=== PATIENT | male | born 1990 | race Caucasian/White ===

== ENCOUNTER 2021-04-26 17:04 | Emergency (ER) | payer MEDICAID, SELFPAY ==
--- NOTE | ~2021-04-26 | CT_ITS ---
EXAMINATION: CT ABDOMEN AND PELVIS WITH CONTRAST CLINICAL INFORMATION: Right lower quadrant tenderness. Pain. Nausea, vomiting, diarrhea. COMPARISON: None TECHNIQUE: Multidetector volumetric images were obtained from the superior aspect of the liver through the pubic symphysis following administration 85 mL of Omnipaque 350 intravenous contrast. Sagittal and coronal reformatted images were obtained on the technologist's workstation. Oral contrast: No This CT examination was performed using dose optimization techniques as appropriate, variously including the following: *Automated exposure control *Adjustment of mA and/or kV according to patient size (this includes techniques or standardized protocols for targeted exams where dose is matched to indication/reason for exam; i.e. extremities or head) *Use of iterative reconstruction technique DLP: 533 mGy-cm FINDINGS: LUNG BASES: The visualized lung bases are unremarkable. LIVER, GALLBLADDER, AND BILIARY TREE: The liver is normal in size, shape, and attenuation. No focal hepatic lesion or biliary ductal dilatation is present. The gallbladder is unremarkable with no evidence of radiopaque gallstones, gallbladder wall thickening, or obvious pericholecystic inflammatory changes. PANCREAS: Unremarkable. SPLEEN: Unremarkable. ADRENAL GLANDS: Unremarkable. KIDNEYS AND URETERS: The kidneys are normal in size, shape, and attenuation. No hydronephrosis, hydroureter, or calculi seen. No perinephric stranding. BLADDER: Unremarkable. GASTROINTESTINAL TRACT: The stomach is unremarkable. Normal caliber small bowel. There is no obstruction. No colonic wall thickening or inflammatory change. Normal appendix. No free air or free fluid. ABDOMINAL WALL: No significant hernia is appreciated. LYMPH NODES: There is no lymphadenopathy. In the left pelvis along the external iliac vasculature there is a 3.7 x 2.4 x 4 cm cystic structure. No soft tissue component. VASCULAR: Unremarkable. PELVIC VISCERA: The prostate and seminal vesicles are unremarkable. OSSEOUS STRUCTURES: No acute or suspicious osseous abnormality. CT/CT abdomen pelvis w con IMPRESSION: No acute findings of the abdomen or pelvis. Normal appendix. No inflammatory changes. Incidentally noted cystic structure along the left iliac vasculature. While nonspecific, this may represent a lymphocele.
[2021-04-26 17:32] VITALS: BP 114/72; PULSE 93; RESP 16; TEMP 37.5; O2SAT 98; BMI 27.2
[2021-04-26 19:54] LABS: MANUAL DIFF FLAG NO
[2021-04-26 19:55] LABS: Basophils Absolute Auto 0.1 X10*3/uL (0.0-0.2); Basophils Percent Auto 0.2 % (0-2); Hematocrit 49.2 % (42-52); Hemoglobin 17.1 g/dl (14.0-18.0); Imm Gran Abs Auto 0.11 X10*3/uL (0.00-0.03); Imm Gran Pct Auto 0.5 % (0.0-0.4); Lymphocytes Absolute Auto 2.8 X10*3/uL (1.2-4.9); Lymphocytes Percent Auto 13.7 % (20-40); Mean Corpuscular HGB Conc 34.8 g/dl (31.0-36.0); Mean Corpuscular Hemoglobin 30.2 pg (27.0-33.0); Mean Corpuscular Volume 86.9 fL (80-98); Mean Platelet Volume 11.8 fL (9.4-12.4); Monocytes Absolute Auto 1.4 X10*3/uL (0.1-1.2); Monocytes Percent Auto 6.7 % (2-11); Neutrophils Absolute Auto 16.1 X10*3/uL (2.0-8.3); Neutrophils Percent Auto 78.9 % (45-73); Platelet Count 297 X10*3/uL (160-400); Red Blood Count 5.66 X10*6/uL (4.60-5.80); Red Cell Distribution Width 12.4 % (11.0-16.0); White Blood Count 20.5 X10*3/uL (4.8-10.8)
[2021-04-26 20:13] LABS: Appearance Urine CLEAR; Color Urine DK YELLOW; Glucose Urine UA NEG (NEG); Leukocyte Esterase Urine NEG (NEG); Nitrite Urine NEG (NEG); Specific Gravity - Urine >= 1.030 (1.005-1.025); UACC Culture Trigger NO; Urine Blood 3+ (NEG); Urine Ketones 15 MG/DL (NEG); Urine Protein 2+ MG/DL (NEG-TRACE)
[2021-04-26 20:15] LABS: Alanine Aminotransferase 21 U/L (0-40); Albumin Level 5.7 g/dL (3.5-5.0); Alkaline Phosphatase 106 U/L (39-117); Anion Gap 16 (12-20); Aspartate Amino Transferase 19 U/L (5-37); Bilirubin Direct 0.7 mg/dL (0.0-0.5); Bilirubin Total 2.8 mg/dL (0.0-1.0); Blood Urea Nitrogen 16 mg/dL (9-16); Calcium 11.5 mg/dL (8.4-10.2); Carbon Dioxide 29 mmol/L (22-29); Chloride 105 mmol/L (96-108); Creatinine Clr Calc Pharmacy 105.1; Estimated Glomerular Filt Rate > 60; Glucose Random 105 mg/dL (60-115); Lipase 22 U/L (8-78); Potassium 4.4 mmol/L (3.3-5.1); Sodium 146 mmol/L (135-145); Total Protein 8.8 g/dL (6.5-8.0)
[2021-04-26 20:20] LABS: Amorphous Sediment Urine TRACE /LPF; Bacteria Urine TRACE /LPF; Mucus Urine 3+ /LPF; Squamous Epithelial Cell Urine TRACE /LPF
[2021-04-26 20:23] VITALS: BP 129/69; PULSE 77; RESP 16; TEMP 37.3; O2SAT 96
--- NOTE | 2021-04-26 21:27 | ED_ITS ---
HPI - General Adult General Chief complaint: Nausea/Vomiting/Diarrhea Stated complaint: dehydration Time Seen by Provider: 04/26/21 21:10 Source: patient Mode of arrival: ambulatory Limitations: no limitations History of Present Illness HPI narrative: 30-year-old male who presents emergency department for evaluation of nausea, vomiting, diarrhea and abdominal pain x3 days. The patient states that he has chronic nausea he wakes up every morning with nausea for the past 2- 3 years. He states that 3 days prior he woke up with nausea and vomited multiple times throughout the day. He states that he has been vomiting 2-3 times per day. He states that 3 days prior he had multiple episodes of loose diarrheal stool but this resolved. He is complaining of lower abdominal pain, right lower quadrant worse than left. The pain is a constant, burning sensation which is worse with movement. He states the pain is 8/10 at its worst. Patient states he has had several episodes in the past where he has had nausea vomiting diarrhea and abdominal pain but has never had any hospitalizations or abdominal surgeries The patient denied fever, chills, chest pain, shortness of breath, lightheadedness or dizziness. The patient does smoke marijuana 3 to 4 times a week. Related Data Previous Rx's Medication Instructions Recorded omeprazole 20 mg capsule,delayed 20 mg PO DAILY 30 Days #30 cap 04/26/21 release ondansetron HCl 4 mg tablet 4 mg PO Q8H PRN #14 tab 04/26/21 (Zofran) Allergies Allergy/AdvReac Type Severity Reaction Status Date / Time No Known Allergies Allergy Unverified 05/03/20 16:11 Review of Systems Review of Systems: Yes all other systems are reviewed and are negative [facility] Past Medical History [facility] Narrative: Past medical history: Asthma. Past surgical history: None. Social history: He denies tobacco use. He denies alcohol use. He states that he smokes marijuana 3 to 4 times a week, 1-2 joints. Denies other drug use. Social History Social History Advance Directives: No Advance Directives Information Provided: Yes Physical Exam Vital Signs: Vital Signs: Last Vital Signs Temp 99.1 F 04/26/21 20:23 Pulse 70 04/26/21 21:51 Resp 16 04/26/21 23:17 BP 130/64 04/26/21 21:51 Pulse Ox 98 04/26/21 21:51 Body Mass Index 27.2 Const: General: cooperative and no acute distress Orientation/consciousness: oriented to person and oriented to place Limitations: no limitations HENMT: Head: Yes normal to inspection, Yes normocephalic and Yes atraumatic Ears: external ears normal General nose exam: Normal external nose present Face and sinus: Yes normal facial exam Mouth: Normal oral and palatal mucosa present Throat: Yes posterior oropharynx normal Eyes: General: appearance normal, both eyes and all related structures Pupils: Equal, round and reactive pupils present Neck: Neck: Yes normal visual inspection, Yes no lymphadenopathy, Yes trachea midline and Yes supple Chest: Chest palpation & inspection: normal inspection of the chest and normal palpation of entire chest wall Resp: Effort & Inspection: normal respiratory effort and able to speak in complete sentences Auscultation: clear to auscultation bilaterally Cardio: Rate: regular rate Rhythm: regular rhythm Heart sounds: S1 normal heart sound present, S2 normal heart sound present and no murmurs GI: Inspection: Yes normal to inspection Palpation (GI): Soft to palpation, Tenderness to palpation present (GI) in the LUQ (Mild), in the RUQ (Moderate) and suprapubicly (Mild) and no guarding Auscultation: normal bowel sounds : General: Yes no CVA tenderness Back/Spine/Pelvis: Back: no CVA tenderness Skin: General skin exam: no rashes or lesions noted Neuro: General: oriented to person and oriented to place Cranial nerves: Yes CN's II-XII intact bilaterally and Yes Equal, round and reactive pupils present Cognition (Neuro): normal cognition Motor exam (neuro): 5/5 motor strength present throughout Extrem: General: Yes normal to inspection Psych: Appearance: grossly normal Speech and movement: Normal speech and movement present Affect: normal affect Attitude: cooperative Thought process: Normal thought process present Thought content: Normal thought content present Course Course Course Narrative: [age]old male who presents emergency department for evaluation of 3 days of nausea, vomiting and abdominal pain. He did have 1 day of diarrhea but this resolved. Vital signs revealed a slight elevation is temperature of 99.5? otherwise unremarkable. The patient's physical examination did reveal lower abdominal tenderness right greater than left. Laboratory evaluation [place] [address]. Patient has an elevated total bilirubin of 2.8 with a low direct bilirubin of 0.7. Urinalysis revealed 15-29 RBCs but no WBCs. Patient's urine is concentrated. Given the patient's right lower quadrant tenderness I did order a CT scan of the abdomen pelvis with IV contrast. Patient was ordered to get Zofran 4 mg IV for his nausea and vomiting. I also ordered to get Toradol 30 mg IV for his abdomi nal pain. Patient was ordered to get 2 L of normal saline IV. 2325: The patient's CT scan of the abdomen pelvis did not reveal any acute findings to explain patient's symptoms. The patient is feeling significantly better after the above treatment. I did discuss the differential with the patient this includes but is not limited to viral syndrome, gastritis and marijuana hyperemesis syndrome. The patient was started on omeprazole 20 mg once a day for 1 month, Zofran ODT 4 mg every 8 hours as needed for nausea and vomiting. The patient was discharged home . The patient was given verbal and printed instructions prior to discharge. The patient was advised to follow-up with his PCP in 2 days and to return to the emergency department if his symptoms get worse or if he develops any new symptoms that are concerning to him. Medical Decision Making Lab Data Result diagrams: 04/26/21 19:42 04/26/21 19:42 Labs: Lab Results 04/26/21 04/26/21 04/26/21 Range/Units 19:42 19:42 19:53 WBC 20.5 H (4.8-10.8) X10*3/uL RBC 5.66 (4.60-5.80) X10*6/uL Hgb 17.1 (14.0-18.0) g/dl Hct 49.2 (42-52) % MCV 86.9 (80-98) fL MCH 30.2 (27.0-33.0) pg MCHC 34.8 (31.0-36.0) g/dl RDW 12.4 (11.0-16.0) % Plt Count 297 (160-400) X10*3/uL MPV 11.8 (9.4-12.4) fL Immature Gran % (Auto) 0.5 H (0.0-0.4) % Neut % (Auto) 78.9 H (45-73) % Lymph % (Auto) 13.7 L (20-40) % [place] % (Auto) 6.7 (2-11) % Eos % (Auto) 0.0 (0-4) % Baso % (Auto) 0.2 (0-2) % Lymph # (Auto) 2.8 (1.2-4.9) X10*3/uL [place] # (Auto) 1.4 H (0.1-1.2) X10*3/uL Eos # (Auto) 0.0 (0.0-0.4) X10*3/uL Baso # (Auto) 0.1 (0.0-0.2) X10*3/uL Abs Immat Gran (auto) 0.11 H (0.00-0.03) X10*3/uL Absolute Neuts (auto) 16.1 H (2.0-8.3) X10*3/uL Absolute Nucleated RBC 0.000 (0.0-0.012) X10*3/uL Nucleated RBC % (auto) 0.0 (0.0-0.2) /100WBC Sodium 146 H (135-145) mmol/L Potassium 4.4 (3.3-5.1) mmol/L Chloride 105 (96-108) mmol/L Carbon Dioxide 29 (22-29) mmol/L Anion Gap 16 (12-20) BUN 16 (9-16) mg/dL Creatinine 1.08 (0.5-1.4) mg/dL Estim Creat Clear Calc 105.1 Estimated GFR > 60 Random Glucose 105 (60-115) mg/dL Calcium 11.5 H (8.4-10.2) mg/dL Total Bilirubin 2.8 H (0.0-1.0) mg/dL Direct Bilirubin 0.7 H (0.0-0.5) mg/dL AST 19 (5-37) U/L ALT 21 (0-40) U/L Alkaline Phosphatase 106 (39-117) U/L Total Protein 8.8 H (6.5-8.0) g/dL Albumin 5.7 H (3.5-5.0) g/dL Lipase 22 (8-78) U/L Urine Color DK YELLOW Urine Appearance CLEAR Urine pH 6.0 (5.0-8.0) Ur Specific [place] >= 1.030 H (1.005-1.025) Urine Protein 2+ H (NEG-TRACE) MG/DL Urine Glucose (UA) NEG (NEG) MG/DL Urine Ketones 15 (NEG) MG/DL Urine Blood 3+ H (NEG) Urine Nitrite NEG (NEG) Ur Leukocyte Esterase NEG (NEG) Urine RBC 15-29 H (0) /HPF Urine WBC 1-4 (0-4) /HPF Ur Squamous Epith Cells TRACE /LPF Amorphous Sediment TRACE /LPF Urine Bacteria TRACE /LPF Urine Mucus 3+ /LPF Discharge Plan Discharge Clinical Impression: Vomiting, Cyclic vomiting syndrome Gastritis Qualifiers: Gastritis type: unspecified gastritis Chronicity: acute Patient Disposition: Home, Self-Care Instructions: Gastritis (ED) Additional Instructions: Your blood work revealed an elevated white blood cell count. The CT scan of your abdomen pelvis was normal with no evidence of appendicitis or other finding to explain your symptoms. At this time I am concerned that you might have inflammation of your stomach (gastritis). I am also concerned that your persistent nausea may be related to marijuana/cannabis hyperemesis syndrome which is chronic nausea and vomiting caused by smoking marijuana on a regular basis. Take Prilosec (omeprazole) 20 mg pills, 1 pill once a day for 1 month, this will shut off the acid production your stomach and mature stomach heal. Take Zofran ODT 4 mg pills, 1 pill dissolved in your mouth every 8 hours as needed for nausea and vomiting. You need to stop smoking marijuana since this may be causing her symptoms. Follow-up with your doctor in 2 days. Please return to the emergency department if your symptoms get worse or if you develop any symptoms that are concerning to you. Prescriptions: New omeprazole 20 mg capsule,delayed release(DR/EC) 20 mg PO DAILY 30 Days Qty: 30 RF: 0 ondansetron HCl [Zofran] 4 mg tablet 4 mg PO Q8H PRN (Reason: nausea and vomiting) Qty: 14 RF: 0
[2021-04-26 21:51] VITALS: BP 130/64; PULSE 70; RESP 16; O2SAT 98
[2021-04-26] MEDS: 0.9 % Sodium Chloride 1,000 ML 999 ML IV ×2 (21:52→22:28)
[2021-04-26] MEDS: ondansetron HCL 4 MG/2 ML VIAL IVPUSH (21:53)
[2021-04-26] MEDS: Ketorolac Tromethamine 15 MG/ML VIAL 30 MG IVPUSH (21:53)
[2021-04-26] MEDS: iohexoL 350 MG/ML 100 ML INFUS..BTL IV (22:27)
[2021-04-26 23:17] VITALS: RESP 16
[2021-04-27 00:02] VITALS: RESP 16
== END 2021-04-27 00:03 | disposition home or self-care (01) ==
PROVIDERS: Emergency Provider Emergency Medicine Emergency Medical Services
DX: R11.15 Cyclical vomiting syndrome unrelated to migraine (principal); K29.00 Acute gastritis without bleeding; R11.2 Nausea with vomiting, unspecified; E86.0 Dehydration; Z79.899 Other long term (current) drug therapy
CPT/HCPCS: 36415; 74177; 80048; 80076; 81001; 83690; 85025; 96361; 96374; 96375; 99284; J1885; J2405; Q9967

== ENCOUNTER 2021-10-19 20:10 | Emergency (ER) | payer MEDICAID, SELFPAY ==
[2021-10-19 20:14] VITALS: BP 129/59; PULSE 81; RESP 16; TEMP 37.1; O2SAT 95; BMI 24.3
[2021-10-19 20:36] LABS: Appearance Urine HAZY; Color Urine YELLOW; Glucose Urine UA NEG (NEG); Leukocyte Esterase Urine NEG (NEG); Nitrite Urine NEG (NEG); UACC Culture Trigger NO; Urine Blood 3+ (NEG); Urine Ketones 40 MG/DL (NEG); Urine Protein 3+ MG/DL (NEG-TRACE)
[2021-10-19 20:36] LABS: Basophils Percent Auto 0.2 % (0-2); Hematocrit 47.9 % (42.0-52.0); Hemoglobin 16.5 g/dl (14.0-18.0); Imm Gran Abs Auto 0.08 X10*3/uL (0.00-0.03); Imm Gran Pct Auto 0.4 % (0.0-0.4); Lymphocytes Absolute Auto 1.1 X10*3/uL (1.2-4.9); Lymphocytes Percent Auto 5.6 % (20-40); MANUAL DIFF FLAG SCAN; Mean Corpuscular HGB Conc 34.4 g/dl (31.0-36.0); Mean Corpuscular Hemoglobin 29.5 pg (27.0-33.0); Mean Corpuscular Volume 85.7 fL (80.0-98.0); Mean Platelet Volume 11.7 fL (9.4-12.4); Monocytes Absolute Auto 0.6 X10*3/uL (0.1-1.2); Monocytes Percent Auto 3.2 % (2-11); Neutrophils Absolute Auto 17.8 x10*3/uL (2.0-8.3); Neutrophils Percent Auto 90.6 % (45-73); Platelet Count 345 X10*3/uL (160-400); Red Blood Count 5.59 X10*6/uL (4.60-5.80); Red Cell Distribution Width 12.7 % (11.0-16.0); SCAN SMEAR FLAG 1; White Blood Count 19.6 X10*3/uL (4.8-10.8)
[2021-10-19 20:51] LABS: IDNOW Serial# 55D5AD1C
[2021-10-19 20:52] LABS: COVID-19 Test Negative (Negative)
[2021-10-19 20:53] LABS: Anion Gap 17 (12-20); Blood Urea Nitrogen 18 mg/dL (9-16); Calcium 11.4 mg/dL (8.4-10.2); Carbon Dioxide 24 mmol/L (22-29); Chloride 106 mmol/L (96-108); Creatinine Clr Calc Pharmacy 108.2; Estimated Glomerular Filt Rate > 60; Glucose Random 145 mg/dL (60-115); Potassium 4.2 mmol/L (3.3-5.1); Sodium 143 mmol/L (135-145)
[2021-10-19 21:08] LABS: Bacteria Urine 1+ /LPF; Mucus Urine 1+ /LPF; WBC Urine 0 /HPF (0-4)
[2021-10-19 21:09] LABS: SLIDE REVIEW VERIFIED
--- NOTE | 2021-10-19 21:47 | ED.NAVMDI ---
HPI - Nausea/Vomiting/Diarrhea General Chief complaint: Abdominal Pain Stated complaint: vomitting, dehydrated, nausea Time Seen by Provider: 10/19/21 21:22 Source: patient, family and [employer] Mode of arrival: ambulatory History of Present Illness HPI Narrative: 31-year-old male with persistent use of marijuana comes in with 24 hours of nausea and vomiting without diarrhea or urinary symptoms. Related Data Previous Rx's Medication Instructions Recorded omeprazole 20 mg capsule,delayed 20 mg PO DAILY 30 Days #30 cap 04/26/21 release ondansetron HCl 4 mg tablet 4 mg PO Q8H PRN #14 tab 04/26/21 (Zofran) Allergies Allergy/AdvReac Type Severity Reaction Status Date / Time No Known Allergies Allergy Unverified 05/03/20 16:11 Review of Systems Review of Systems: Pertinent positives and negatives as stated in HPI 10 point review of systems is otherwise negative. PMFSH Past Medical History Source: nursing notes reviewed Medical History No known health problems Social History Social History Advance Directives: No Physical Exam Vital Signs: Vital Signs: Last Vital Signs Temp 98.8 F 10/19/21 20:14 Pulse 81 10/19/21 20:14 Resp 16 10/19/21 20:14 BP 129/59 L 10/19/21 20:14 Pulse Ox 95 10/19/21 20:14 BMI result Body Mass Index 24.3 VITAL SIGNS: Reviewed. GENERAL: Well developed, well nourished, in no acute distress. HEAD: Normocephalic/atraumatic EYES: PERRLA, EOMI EARS: Ext canals without abnormality OROPHARYNX: no oral lesions noted, posterior pharynx clear LUNGS: Normal breath sounds. No adventitious sounds or accessory muscle use. SpO2<95> CARDIOVASCULAR: Regular rate and rhythm without noted murmurs ABDOMEN: Soft, non-tender, non-distended with bowel sounds. MUSCULOSKELETAL: No tenderness, deformities, or effusions noted on gross inspection. EXTREMITIES: No cyanosis, clubbing or edema. SKIN: Inspection of the skin reveals no rashes NEUROLOGIC: Alert and oriented x 4. Strength and sensation to light touch were grossly intact x 4. Course Course Course Narrative: 31-year-old male with history of cyclical vomiting as well as marijuana use. Review of all investigations although a noted leukocytosis is present this is felt to be consistent with patient's multiple episodes of nausea and vomiting as he has no other acute complaints. He is afebrile, not tachycardic and will treat with antiemetics and IV fluid resuscitation. On re-evaluation patient is feeling much better and is otherwise stable for discharge to home. Patient is tolerating oral intake. MDM - Nausea/Vomiting/Diarrhea Lab Data Result diagrams: 10/19/21 20:21 10/19/21 20:21 Labs: Lab Results 10/19/21 10/19/21 10/19/21 Range/Units 20:21 20:21 20:21 WBC 19.6 H (4.8-10.8) X10*3/uL RBC 5.59 (4.60-5.80) X10*6/uL Hgb 16.5 (14.0-18.0) g/dl Hct 47.9 (42.0-52.0) % MCV 85.7 (80.0-98.0) fL MCH 29.5 (27.0-33.0) pg MCHC 34.4 (31.0-36.0) g/dl RDW 12.7 (11.0-16.0) % Plt Count 345 (160-400) X10*3/uL MPV 11.7 (9.4-12.4) fL Immature Gran % (Auto) 0.4 (0.0-0.4) % Neut % (Auto) 90.6 H (45-73) % Lymph % (Auto) 5.6 L (20-40) % [place] % (Auto) 3.2 (2-11) % Eos % (Auto) 0.0 (0-4) % Baso % (Auto) 0.2 (0-2) % Lymph # (Auto) 1.1 L (1.2-4.9) X10*3/uL [place] # (Auto) 0.6 (0.1-1.2) X10*3/uL Eos # (Auto) 0.0 (0.0-0.4) X10*3/uL Baso # (Auto) 0.0 (0.0-0.2) X10*3/uL Abs Immat Gran (auto) 0.08 H (0.00-0.03) X10*3/uL Absolute Neuts (auto) 17.8 H (2.0-8.3) x10*3/uL Absolute Nucleated RBC 0.000 (0.0-0.012) X10*3/uL Nucleated RBC % (auto) 0.0 (0.0-0.2) /100WBC Smear Tech's Comments VERIFIED Sodium 143 (135-145) mmol/L Potassium 4.2 (3.3-5.1) mmol/L Chloride 106 (96-108) mmol/L Carbon Dioxide 24 (22-29) mmol/L Anion Gap 17 (12-20) BUN 18 H (9-16) mg/dL Creatinine 1.04 (0.5-1.4) mg/dL Estim Creat Clear Calc 108.2 Estimated GFR > 60 Random Glucose 145 H D (60-115) mg/dL Calcium 11.4 H (8.4-10.2) mg/dL Urine Color Urine Appearance Urine pH (5.0-8.0) Ur Specific [place] (1.005-1.025) Urine Protein (NEG-TRACE) MG/DL Urine Glucose (UA) (NEG) MG/DL Urine Ketones (NEG) MG/DL Urine Blood (NEG) Urine Nitrite (NEG) Ur Leukocyte Esterase (NEG) Urine RBC (0) /HPF Urine WBC (0-4) /HPF Ur Squamous Epith Cells /LPF Urine Bacteria /LPF Urine Mucus /LPF COVID-19 ([facility]) Negative (Negative) COVID-19 Clin Com See Note 10/19/21 Range/Units 20:26 WBC (4.8-10.8) X10*3/uL RBC (4.60-5.80) X10*6/uL Hgb (14.0-18.0) g/dl Hct (42.0-52.0) % MCV (80.0-98.0) fL MCH (27.0-33.0) pg MCHC (31.0-36.0) g/dl RDW (11.0-16.0) % Plt Count (160-400) X10*3/uL MPV (9.4-12.4) fL Immature Gran % (Auto) (0.0-0.4) % Neut % (Auto) (45-73) % Lymph % (Auto) (20-40) % [place] % (Auto) (2-11) % Eos % (Auto) (0-4) % Baso % (Auto) (0-2) % Lymph # (Auto) (1.2-4.9) X10*3/uL [place] # (Auto) (0.1-1.2) X10*3/uL Eos # (Auto) (0.0-0.4) X10*3/uL Baso # (Auto) (0.0-0.2) X10*3/uL Abs Immat Gran (auto) (0.00-0.03) X10*3/uL Absolute Neuts (auto) (2.0-8.3) x10*3/uL Absolute Nucleated RBC (0.0-0.012) X10*3/uL Nucleated RBC % (auto) (0.0-0.2) /100WBC Smear Tech's Comments Sodium (135-145) mmol/L Potassium (3.3-5.1) mmol/L Chloride (96-108) mmol/L Carbon Dioxide (22-29) mmol/L Anion Gap (12-20) BUN (9-16) mg/dL Creatinine (0.5-1.4) mg/dL Estim Creat Clear Calc Estimated GFR Random Glucose (60-115) mg/dL Calcium (8.4-10.2) mg/dL Urine Color YELLOW Urine Appearance HAZY Urine pH 7.0 (5.0-8.0) Ur Specific [place] 1.020 (1.005-1.025) Urine Protein 3+ H (NEG-TRACE) MG/DL Urine Glucose (UA) NEG (NEG) MG/DL Urine Ketones 40 (NEG) MG/DL Urine Blood 3+ H (NEG) Urine Nitrite NEG (NEG) Ur Leukocyte Esterase NEG (NEG) Urine RBC 15-29 H (0) /HPF Urine WBC 0 (0-4) /HPF Ur Squamous Epith Cells NONE /LPF Urine Bacteria 1+ /LPF Urine Mucus 1+ /LPF COVID-19 ([facility]) (Negative) COVID-19 Clin Com Discharge Plan Discharge Clinical Impression: Cyclical vomiting Patient Disposition: Home, Self-Care Instructions: Cyclic Vomiting Syndrome (ED) Additional Instructions: 1. Recommend that you either decrease the amount marijuana that is smoked or fall possible stop smoking. 2. Recommend that you follow-up with your primary care provider. Return to the ER for worsening symptoms. Prescriptions: No Action omeprazole 20 mg capsule,delayed release(DR/EC) 20 mg PO DAILY 30 Days Qty: 30 0RF ondansetron HCl [Zofran] 4 mg tablet 4 mg PO Q8H PRN (Reason: nausea and vomiting) Qty: 14 0RF
[2021-10-19] MEDS: diphenhydrAMINE HCL 50 MG/ML VIAL 25 MG IVPUSH (22:12)
[2021-10-19] MEDS: 0.9 % Sodium Chloride 1,000 ML 999 ML IV (22:12)
[2021-10-19] MEDS: Metoclopramide HCl 10 MG/2 ML VIAL IVPUSH (22:12)
--- NOTE | 2021-10-20 00:25 | PC.NURSE ---
I assumed care of this pt upon his arrival to bed 17. he presented to the ED for evaluation of nausea and vomiting. He was given IVF's and anti-emetics and was able to take PO food and fluids following. He has been discharged and verbalized an understanding of all DC orders. He ambulated out of the ED independently and with steady gait.
== END 2021-10-20 00:28 | disposition home or self-care (01) ==
PROVIDERS: Emergency Provider Student in an Organized Health Care Education/Training Program
DX: R11.15 Cyclical vomiting syndrome unrelated to migraine (principal); R11.2 Nausea with vomiting, unspecified; F12.90 Cannabis use, unspecified, uncomplicated; Z20.822 Contact with and (suspected) exposure to COVID-19
CPT/HCPCS: 80048; 81001; 85025; 87635; 96361; 96374; 96375; 99283; 99284; J1200; J2765

== ENCOUNTER 2021-11-01 09:20 | Emergency (ER) | payer MEDICAID, SELFPAY ==
[2021-11-01 09:51] VITALS: BP 124/70; PULSE 74; RESP 18; TEMP 36.9; O2SAT 100; BMI 23.6
[2021-11-01] MEDS: Ondansetron ODT 4 MG TAB.RAPDIS TRANSLINGU (09:54)
--- NOTE | 2021-11-01 12:04 | ED.NAVMDI ---
HPI - Nausea/Vomiting/Diarrhea General Chief complaint: Nausea/Vomiting/Diarrhea Stated complaint: Dehydrated/nauseous Time Seen by Provider: 11/01/21 11:58 Source: patient Mode of arrival: ambulatory Limitations: no limitations History of Present Illness HPI Narrative: Patient comes to the emergency room complaining of nausea vomiting, no diarrhea, no significant abdominal pain. Patient states that yesterday he ate something around 19:00 that might have upset his stomach. This morning, around 04:00 he woke up complaining of nausea and vomiting. Patient denies fever chills, no URI or UTI symptoms Related Data Previous Rx's Medication Instructions Recorded omeprazole 20 mg capsule,delayed 20 mg PO DAILY 30 Days #30 cap 04/26/21 release ondansetron HCl 4 mg tablet 4 mg PO Q8H PRN #14 tab 04/26/21 (Zofran) ondansetron HCl 4 mg tablet 4 mg PO Q6H PRN #7 tab 11/01/21 Allergies Allergy/AdvReac Type Severity Reaction Status Date / Time No Known Allergies Allergy Unverified 05/03/20 16:11 Review of Systems Review of Systems: Constitutional : No Weight loss, No Fever, No Chills, No Night Sweats, No Fatigue, No Malaise ENT/Mouth : No Hearing loss, No Ear Pain, No Nasal Congestion, No Sinus Pain, No Hoarseness, No sore throat, No Rhinorrhea, No Swallowing Difficulty Eyes: No Eye Pain, No Swelling, No Redness, No Foreign Body, No Discharge, No Vision Changes Cardiovascular : No Chest Pain, No SOB, No Dyspnea on Exertion, No Orthopnea, No Edema, No Palpitations Respiratory : No Cough, No Sputum, No Wheezing, No Smoke Exposure, No Dyspnea Gastrointestinal : Complaining of nausea vomiting, No Diarrhea, No Constipation, No abdominal Pain, No Hematochezia, No Melena Genitourinary :No Dysuria, No Urinary Frequency, No Hematuria, No Urinary Incontinence, No Urgency, No Flank Pain, No Urinary Flow Changes, No Hesitancy Musculoskeletal : No joint pain, No Myalgias, No Joint Swelling Skin : No Skin Lesions, No rash Neuro : No Weakness, No Numbness, No Paresthesias, No Loss of Consciousness, No Dizziness, No Headache Psych : No Anxiety/Panic, No Depression, No SI/HI/AH/VH, No Social Issues, Heme/Lymph: No Bruising, No Bleeding,No Lymphadenopathy Endocrine : No Polyuria, No Polydipsia, No Temperature Intolerance [facility] Past Medical History Medical History No known health problems Social History Social History Smoked in Last 30 Days: No Use of substances other than those prescribed or required for medical reasons: Yes Substance Use Type: Marijuana Advance Directives: No Advance Directives Information Provided: No Physical Exam Vital Signs: Vital Signs: Last Vital Signs Temp 98.7 F 11/01/21 12:13 Pulse 74 11/01/21 12:13 Resp 16 11/01/21 12:13 BP 118/73 11/01/21 12:13 Pulse Ox 98 11/01/21 12:13 BMI result Body Mass Index 23.6 Const: Other: Appearance: Alert. Oriented X3. No acute distress. Eyes: Pupils equal, round and reactive to light. ENT: Pharynx normal. Neck: Normal inspection. Neck supple. No lymph nodes noted. No crepitus CVS: Normal heart rate and rhythm. Pulses normal. Normal S1 and S2 Respiratory: No respiratory distress. Breath sounds normal. No Wheezing. No rales Abdomen: Soft and nontender. No rigidity. No distention. Skin: Skin warm and dry. Normal skin color. Normal skin turgor. Extremities: No lower extremity edema. No Lacerations. No Rash Neuro: Oriented X 3. No motor deficit. No sensory deficit. Moving all extremities. No slurred speech. CN 2 through 12 grossly intact Psych: calm, cooperative, normal affect Course Course Course Narrative: Patient was given p.o. Zofran on arrival. Patient will be given fluids in Compazine. Labs pending including COVID and influenza. Patient tested negative for COVID influenza, patient likely having numbness. Overall patient feeling better, no longer having nausea vomiting or diarrhea. Patient states that he feels much better MDM - Nausea/Vomiting/Diarrhea Lab Data Result diagrams: 11/01/21 12:23 11/01/21 15:13 Labs: Lab Results 11/01/21 11/01/21 11/01/21 Range/Units 12:19 12:20 12:23 WBC 16.8 H (4.8-10.8) X10*3/uL RBC 5.33 (4.60-5.80) X10*6/uL Hgb 16.0 (14.0-18.0) g/dl Hct 46.7 (42.0-52.0) % MCV 87.6 (80.0-98.0) fL MCH 30.0 (27.0-33.0) pg MCHC 34.3 (31.0-36.0) g/dl RDW 12.8 (11.0-16.0) % Plt Count 302 (160-400) X10*3/uL MPV 11.5 (9.4-12.4) fL Immature Gran % (Auto) 0.4 (0.0-0.4) % Neut % (Auto) 89.8 H (45-73) % Lymph % (Auto) 6.3 L (20-40) % [place] % (Auto) 3.2 (2-11) % Eos % (Auto) 0.0 (0-4) % Baso % (Auto) 0.3 (0-2) % Lymph # (Auto) 1.1 L (1.2-4.9) X10*3/uL [place] # (Auto) 0.5 (0.1-1.2) X10*3/uL Eos # (Auto) 0.0 (0.0-0.4) X10*3/uL Baso # (Auto) 0.1 (0.0-0.2) X10*3/uL Abs Immat Gran (auto) 0.07 H (0.00-0.03) X10*3/uL Absolute Neuts (auto) 15.1 H (2.0-8.3) x10*3/uL Absolute Nucleated RBC 0.000 (0.0-0.012) X10*3/uL Nucleated RBC % (auto) 0.0 (0.0-0.2) /100WBC Sodium (135-145) mmol/L Potassium (3.3-5.1) mmol/L Chloride (96-108) mmol/L Carbon Dioxide (22-29) mmol/L Anion Gap (12-20) BUN (9-16) mg/dL Creatinine (0.5-1.4) mg/dL Estim Creat Clear Calc Estimated GFR Random Glucose (60-115) mg/dL Calcium (8.4-10.2) mg/dL Total Bilirubin (0.0-1.0) mg/dL Direct Bilirubin (0.0-0.5) mg/dL AST (5-37) U/L ALT (0-40) U/L Alkaline Phosphatase (39-117) U/L Total Protein (6.5-8.0) g/dL Albumin (3.5-5.0) g/dL Lipase (8-78) U/L COVID-19 ([facility]) Negative (Negative) COVID-19 Clin Com See Note Influenza Type A (MARIO) Negative (Negative) Influenza Type B (MARIO) Negative (Negative) Influenza A & B Note See Note 11/01/21 Range/Units 15:13 WBC (4.8-10.8) X10*3/uL RBC (4.60-5.80) X10*6/uL Hgb (14.0-18.0) g/dl Hct (42.0-52.0) % MCV (80.0-98.0) fL MCH (27.0-33.0) pg MCHC (31.0-36.0) g/dl RDW (11.0-16.0) % Plt Count (160-400) X10*3/uL MPV (9.4-12.4) fL Immature Gran % (Auto) (0.0-0.4) % Neut % (Auto) (45-73) % Lymph % (Auto) (20-40) % [place] % (Auto) (2-11) % Eos % (Auto) (0-4) % Baso % (Auto) (0-2) % Lymph # (Auto) (1.2-4.9) X10*3/uL [place] # (Auto) (0.1-1.2) X10*3/uL Eos # (Auto) (0.0-0.4) X10*3/uL Baso # (Auto) (0.0-0.2) X10*3/uL Abs Immat Gran (auto) (0.00-0.03) X10*3/uL Absolute Neuts (auto) (2.0-8.3) x10*3/uL Absolute Nucleated RBC (0.0-0.012) X10*3/uL Nucleated RBC % (auto) (0.0-0.2) /100WBC Sodium 142 (135-145) mmol/L Potassium 4.3 (3.3-5.1) mmol/L Chloride 106 (96-108) mmol/L Carbon Dioxide 27 (22-29) mmol/L Anion Gap 13 (12-20) BUN 13 (9-16) mg/dL Creatinine 0.81 (0.5-1.4) mg/dL Estim Creat Clear Calc 138.9 Estimated GFR > 60 Random Glucose 101 (60-115) mg/dL Calcium 10.0 D (8.4-10.2) mg/dL Total Bilirubin 1.3 H (0.0-1.0) mg/dL Direct Bilirubin 0.4 (0.0-0.5) mg/dL AST 19 (5-37) U/L ALT 28 (0-40) U/L Alkaline Phosphatase 83 D (39-117) U/L Total Protein 7.1 (6.5-8.0) g/dL Albumin 4.7 (3.5-5.0) g/dL Lipase 10 (8-78) U/L COVID-19 ([facility]) (Negative) COVID-19 Clin Com Influenza Type A (MARIO) (Negative) Influenza Type B (MARIO) (Negative) Influenza A & B Note Discharge Plan Discharge Clinical Impression: Vomiting Patient Disposition: Home, Self-Care Instructions: Acute Nausea and Vomiting (ED) Additional Instructions: Please follow-up with your primary care physician tomorrow. If you have any worsening or new symptoms, please return to the emergency room or call 911 Prescriptions: New ondansetron HCl 4 mg tablet 4 mg PO Q6H PRN (Reason: nausea and vomiting) Qty: 7 0RF No Action omeprazole 20 mg capsule,delayed release(DR/EC) 20 mg PO DAILY 30 Days Qty: 30 0RF ondansetron HCl [Zofran] 4 mg tablet 4 mg PO Q8H PRN (Reason: nausea and vomiting) Qty: 14 0RF
[2021-11-01 12:13] VITALS: BP 118/73; PULSE 74; RESP 16; TEMP 37.1; O2SAT 98
[2021-11-01 12:27] LABS: MANUAL DIFF FLAG NO
[2021-11-01] MEDS: 0.9 % Sodium Chloride 1,000 ML 999 ML IVCONT (12:27)
[2021-11-01] MEDS: Prochlorperazine Edisylate 10 MG/2 ML VIAL 5 MG IVPUSH (12:27)
[2021-11-01 12:32] LABS: Basophils Absolute Auto 0.1 X10*3/uL (0.0-0.2); Basophils Percent Auto 0.3 % (0-2); Hematocrit 46.7 % (42.0-52.0); Imm Gran Abs Auto 0.07 X10*3/uL (0.00-0.03); Imm Gran Pct Auto 0.4 % (0.0-0.4); Lymphocytes Absolute Auto 1.1 X10*3/uL (1.2-4.9); Lymphocytes Percent Auto 6.3 % (20-40); Mean Corpuscular HGB Conc 34.3 g/dl (31.0-36.0); Mean Corpuscular Volume 87.6 fL (80.0-98.0); Mean Platelet Volume 11.5 fL (9.4-12.4); Monocytes Absolute Auto 0.5 X10*3/uL (0.1-1.2); Monocytes Percent Auto 3.2 % (2-11); Neutrophils Absolute Auto 15.1 x10*3/uL (2.0-8.3); Neutrophils Percent Auto 89.8 % (45-73); Platelet Count 302 X10*3/uL (160-400); Red Blood Count 5.33 X10*6/uL (4.60-5.80); Red Cell Distribution Width 12.8 % (11.0-16.0); White Blood Count 16.8 X10*3/uL (4.8-10.8)
[2021-11-01 12:46] LABS: COVID-19 Test Negative (Negative)
[2021-11-01 13:08] LABS: Influenza A Negative (Negative); Influenza B2 Negative (Negative)
[2021-11-01 15:35] LABS: Alanine Aminotransferase 28 U/L (0-40); Albumin Level 4.7 g/dL (3.5-5.0); Alkaline Phosphatase 83 U/L (39-117); Anion Gap 13 (12-20); Aspartate Amino Transferase 19 U/L (5-37); Bilirubin Direct 0.4 mg/dL (0.0-0.5); Bilirubin Total 1.3 mg/dL (0.0-1.0); Blood Urea Nitrogen 13 mg/dL (9-16); Carbon Dioxide 27 mmol/L (22-29); Chloride 106 mmol/L (96-108); Creatinine Clr Calc Pharmacy 138.9; Estimated Glomerular Filt Rate > 60; Glucose Random 101 mg/dL (60-115); Lipase 10 U/L (8-78); Potassium 4.3 mmol/L (3.3-5.1); Sodium 142 mmol/L (135-145); Total Protein 7.1 g/dL (6.5-8.0)
== END 2021-11-01 15:49 | disposition home or self-care (01) ==
PROVIDERS: Emergency Provider Emergency Medicine
DX: R11.2 Nausea with vomiting, unspecified (principal); Z20.822 Contact with and (suspected) exposure to COVID-19; F12.90 Cannabis use, unspecified, uncomplicated
CPT/HCPCS: 80048; 80076; 83690; 85025; 87502; 87635; 96361; 96374; 99284

== ENCOUNTER 2022-10-25 11:42 | Emergency (ER) | payer MEDICAID, SELFPAY ==
[2022-10-25 11:56] VITALS: BP 129/82; PULSE 78; RESP 16; TEMP 36.6; O2SAT 100; BMI 24.3
--- NOTE | 2022-10-25 11:56 | ED_ITS ---
HPI - General Adult General Chief complaint: Nausea/Vomiting/Diarrhea <ANTHONY Dasilva - Last Filed: 10/25/22 11:57> Stated complaint: Nauseas/Dizziness <ANTHONY Dasilva - Last Filed: 10/25/22 11:57> Time Seen by Provider: 10/25/22 12:50 <ANTHONY Dasilva - Last Filed: 10/25/22 11:57> Source: patient <ANTHONY Ojeda Last Filed: 10/25/22 18:54> Mode of arrival: ambulatory <ANTHONY Ojeda - Last Filed: 10/25/22 18:54> History of Present Illness HPI narrative: 32-year-old male with no significant past medical history presenting to the ED complaining of epigastric abdominal pain, nausea, vomiting, nonbloody diarrhea since 03:00AM. Reports about 20 episodes of emesis. Denies fever, chills, suspicious food intake, recent travel, dysuria/hematuria, EtOH or drug use <ANTHONY Ojeda Last Filed: 10/25/22 18:54> Onset (ago): hour(s) <ANTHONY Ojeda - Last Filed: 10/25/22 18:54> Related Data Home medications: Previous Rx's Medication Instructions Recorded omeprazole 20 mg capsule,delayed 20 mg PO DAILY 30 days #30 caps 04/26/21 release ondansetron HCl 4 mg tablet 4 mg PO Q8H PRN nausea and 04/26/21 (Zofran) vomiting #14 tabs ondansetron HCl 4 mg tablet 4 mg PO Q6H PRN nausea and 11/01/21 vomiting #7 tabs aluminum-mag hydroxide-simethicone 5 ml PO 5XD PRN dyspepsia #30 mL 10/25/22 200 mg-200 mg-20 mg/5 mL oral susp (Maalox Advanced) famotidine 20 mg tablet (Pepcid) 20 mg PO DAILY #14 tabs 10/25/22 ondansetron 4 mg disintegrating 4 mg PO Q8H PRN nausea and 10/25/22 tablet vomiting #10 tabs <ANTHONY Dasilva Last Filed: 10/25/22 11:57> Allergies/adverse reactions: Allergies Allergy/AdvReac Type Severity Reaction Status Date / Time No Known Allergies Allergy Unverified 05/03/20 16:11 <ANTHONY Dasilva - Last Filed: 10/25/22 11:57> Review of Systems Review of Systems: Constitutional: No Fever, No Chills, No Fatigue, No Malaise ENT/Mouth: No Ear Pain, No Nasal Congestion, No sore throat, No Rhinorrhea, No Swallowing Difficulty Eyes: No Eye Pain, No Swelling, No Redness Cardiovascular: No Chest Pain, No SOB, No Palpitations Respiratory: No Cough, No Sputum, No Dyspnea Gastrointestinal: + Nausea, + Vomiting, No Diarrhea, No Constipation, + Abdominal pain, No Hematochezia, No Melena Genitourinary: No Dysuria, No Urinary Frequency, No Hematuria, No Urinary Incontinence/retention, No Flank Pain Musculoskeletal: No joint pain, No Myalgias, No Joint Swelling Skin: No Skin Lesions, No rash Neuro: No Weakness, No Dizziness, No Headache <ANTHONY Ojeda - Last Filed: 10/25/22 18:54> Yes all other systems are reviewed and are negative <ANTHONY Ojeda - Last Filed: 10/25/22 18:54> Constitutional: Constitutional: Reports as per HPI <ANTHONY Ojeda - Last Filed: 10/25/22 18:54> [facility] Past Medical History Attestation statement: The following information was validated with the patient. <ANTHONY Ojeda - Last Filed: 10/25/22 18:54> Medical History: Medical History No known health problems <ANTHONY Dasilva - Last Filed: 10/25/22 11:57> Social History Social History: Social History Substance Use Type: Marijuana Advance Directives: No Advance Directives Information Provided: No <ANTHONY Dasilva - Last Filed: 10/25/22 11:57> Physical Exam ED Vital Signs: Vital Signs - 24 hr 10/25/22 11:56 10/25/22 15:57 Temperature 97.9 F 100.9 F H Pulse Rate 78 79 Respiratory Rate 16 16 Blood Pressure 129/82 134/66 Pulse Oximetry 100 100 Oxygen Delivery Method Room Air Room Air BMI result Body Mass Index 24.3 <ANTHONY Dasilva - Last Filed: 10/25/22 11:57> Vital Signs - 24 hr 10/25/22 11:56 10/25/22 15:57 Temperature 97.9 F 100.9 F H Pulse Rate 78 79 Respiratory Rate 16 16 Blood Pressure 129/82 134/66 Pulse Oximetry 100 100 Oxygen Delivery Method Room Air Room Air BMI result Body Mass Index 24.3 <ANTHONY Ojeda - Last Filed: 10/25/22 18:54> Const Other: Pale, diaphoretic <ANTHONY Ojeda - Last Filed: 10/25/22 18:54> General: cooperative, no acute distress, alert and awake <ANTHONY Ojeda - Last Filed: 10/25/22 18:54> Orientation/consciousness: patient oriented x3 <ANTHONY Ojeda - Last Filed: 10/25/22 18:54> Limitations: no limitations <ANTHONY Ojeda - Last Filed: 10/25/22 18:54> HENMT Head: Yes normal to inspection and Yes atraumatic <ANTHONY Ojeda - Last Filed: 10/25/22 18:54> Ears: hearing grossly normal bilaterally <ANTHONY Ojeda - Last Filed: 10/25/22 18:54> General nose exam: Normal external nose present <ANTHONY Ojeda - Last Filed: 10/25/22 1 8:54> Face and sinus: Yes normal facial exam <ANTHONY Ojeda - Last Filed: 10/25/22 18:54> Eyes General: appearance normal, both eyes and all related structures <ANTHONY Ojeda - Last Filed: 10/25/22 18:54> EOM: EOMs intact bilaterally <ANTHONY Ojeda - Last Filed: 10/25/22 18:54> Neck Neck: Yes normal visual inspection and Yes no meningeal signs <ANTHONY Ojeda - Last Filed: 10/25/22 18:54> Resp Effort & Inspection: normal respiratory effort and no respiratory distress <ANTHONY Ojeda - Last Filed: 10/25/22 18:54> Cardio Rate: regular rate <ANTHONY Ojeda - Last Filed: 10/25/22 18:54> Heart sounds: S1 normal heart sound present and S2 normal heart sound present <ANTHONY Ojeda - Last Filed: 10/25/22 18:54> GI Inspection: Yes normal to inspection <Delia Butcher PA - Last Filed: 10/25/22 18:54> Palpation (GI): Soft to palpation, nontender, no guarding and not rigid <Delia Butcher PA - Last Filed: 10/25/22 18:54> General: Yes no CVA tenderness <ANTHONY Ojeda - Last Filed: 10/25/22 18:54> Back/Spine/Pelvis Back: no CVA tenderness <ANTHONY Ojeda - Last Filed: 10/25/22 18:54> Skin Rashes: no rashes <ANTHONY Ojeda - Last Filed: 10/25/22 18:54> Wounds: no wounds <ANTHONY Ojeda - Last Filed: 10/25/22 18:54> Neuro General: patient oriented x3, tone normal and no meningeal signs <ANTHONY Ojeda - Last Filed: 10/25/22 18:54> Gait exam (Neuro): Normal gait present <ANTHONY Ojeda - Last Filed: 10/25/22 18:54> Extrem General: Yes normal to inspection <ANTHONY Ojeda - Last Filed: 10/25/22 18:54> Course Course Course Narrative: RME performed by Samina Blanca PA-C. Patient is a 32 year old male presenting to the emergency department with nausea and vomiting. Patient states that he woke up today nauseous and throwing up. Patient denies any one else in the house being sick. Labs ordered. Patient placed back in the waiting room pending room availability and results. <ANTHONY Dasilva Last Filed: 10/25/22 11:57> RME performed by Samina Blanca PA-C. Patient is a 32 year old male presenting to the emergency department with nausea and vomiting. Patient states that he woke up today nauseous and throwing up. Patient denies any one else in the house being sick. Labs ordered. Patient placed back in the waiting room pending room availability and results. -1344--leukocytosis of 17.5 likely reactive from nausea/vomiting. Still low suspicion for severe sepsis. T bili acute on chronically elevated likely from emesis. Labs otherwise reassuring. > upon chart review patient has been seen and treated in our ED multiple times for similar symptoms. -1351--UA with protein blood, not infected. Tox screen positive for marijuana >> on re-evaluation patient tolerating p.o. water. Reports mild nausea will give Compazine and re-evaluate. > patient tolerated p.o. cracker. Reports symptomatic improvement -1815--patient admits he chugged some water then felt nauseous. Currently dry heaving. Will give Benadryl/Zofran, & re- p.o. challenge, patient overall reports symptomatic improvement and would like to be discharged. Discussed admission which patient is not agreeable to at this time. >> patient tolerating p.o. Feels safe for discharge home at this time Results discussed with patient including worrisome signs and symptoms and strict return precautions, and when to return to the emergency department. They verbalized understanding and feel safe for discharge at this time. <ANTHONY Ojeda - Last Filed: 10/25/22 18:54> Medications Administered Discontinued Medications Generic Name Dose Route Start Last Admin Trade Name Freq PRN Reason Stop Dose Admin Diphenhydramine HCl 25 mg 10/25/22 18:15 10/25/22 18:34 Diphenhydramine Hcl 50 Mg/Ml Vial IVPUSH 10/25/22 18:16 25 mg ONCE ONE Administration Famotidine 20 mg 10/25/22 12:56 10/25/22 13:14 Famotidine/Pf 20 Mg/2 Ml Vial IVPUSH 10/25/22 12:57 20 mg ONCE ONE Administration Sodium Chloride 1,000 mls @ 999 mls/hr 10/25/22 13:00 10/25/22 14:36 Ns IV 10/25/22 14:00 Infused .Q1H1M MICHEAL Infusion Lactated Ringer's 1,000 mls @ 999 mls/hr 10/25/22 13:30 10/25/22 16:14 Lr IV 10/25/22 14:30 Infused .Q1H1M MICHEAL Infusion Ketorolac Tromethamine 15 mg 10/25/22 15:58 10/25/22 16:08 Ketorolac Tromethamine 15 Mg/Ml Vial IVPUSH 10/25/22 15:59 15 mg ONCE ONE Administration Metoclopramide HCl 10 mg 10/25/22 13:10 10/25/22 13:18 Metoclopramide Hcl 10 Mg/2 Ml Vial IVPUSH 10/25/22 13:11 10 mg ONCE ONE Administration Ondansetron HCl 4 mg 10/25/22 11:57 10/25/22 12:46 Ondansetron Odt 4 Mg Tab.Rapdis TRANSLINGU 10/25/22 11:58 4 mg ONCE ONE Administration Ondansetron HCl 4 mg 10/25/22 18:16 10/25/22 18:34 Ondansetron Hcl 4 Mg/2 Ml Vial IVPUSH 10/25/22 18:17 4 mg ONCE ONE Administration Prochlorperazine Edisylate 5 mg 10/25/22 15:51 10/25/22 16:11 Prochlorperazine Edisylate 10 Mg/2 Ml Vial IVPUSH 10/25/22 15:52 5 mg ONCE ONE Administration <ANTHONY Dasilva - Last Filed: 10/25/22 11:57> Medications Administered Discontinued Medications Generic Name Dose Route Start Last Admin Trade Name Freq PRN Reason Stop Dose Admin Diphenhydramine HCl 25 mg 10/25/22 18:15 10/25/22 18:34 Diphenhydramine Hcl 50 Mg/Ml Vial IVPUSH 10/25/22 18:16 25 mg ONCE ONE Administration Famotidine 20 mg 10/25/22 12:56 10/25/22 13:14 Famotidine/Pf 20 Mg/2 Ml Vial IVPUSH 10/25/22 12:57 20 mg ONCE ONE Administration Sodium Chloride 1,000 mls @ 999 mls/hr 10/25/22 13:00 10/25/22 14:36 Ns IV 10/25/22 14:00 Infused .Q1H1M MICHEAL Infusion Lactated Ringer's 1,000 mls @ 999 mls/hr 10/25/22 13:30 10/25/22 16:14 Lr IV 10/25/22 14:30 Infused .Q1H1M MICHEAL Infusion Ketorolac Tromethamine 15 mg 10/25/22 15:58 10/25/22 16:08 Ketorolac Tromethamine 15 Mg/Ml Vial IVPUSH 10/25/22 15:59 15 mg ONCE ONE Administration Metoclopramide HCl 10 mg 10/25/22 13:10 10/25/22 13:18 Metoclopramide Hcl 10 Mg/2 Ml Vial IVPUSH 10/25/22 13:11 10 mg ONCE ONE Administration Ondansetron HCl 4 mg 10/25/22 11:57 10/25/22 12:46 Ondansetron Odt 4 Mg Tab.Rapdis TRANSLINGU 10/25/22 11:58 4 mg ONCE ONE Administration Ondansetron HCl 4 mg 10/25/22 18:16 10/25/22 18:34 Ondansetron Hcl 4 Mg/2 Ml Vial IVPUSH 10/25/22 18:17 4 mg ONCE ONE Administration Prochlorperazine Edisylate 5 mg 10/25/22 15:51 10/25/22 16:11 Prochlorperazine Edisylate 10 Mg/2 Ml Vial IVPUSH 10/25/22 15:52 5 mg ONCE ONE Administration <ANTHONY Ojeda Last Filed: 10/25/22 18:54> Medical Decision Making Medical Decision Making MDM Narrative: 32-year-old male with no significant past medical history presenting to the ED complaining of epigastric abdominal pain, nausea, vomiting, nonbloody diarrhea since 03:00AM. On exam vital signs stable, in the ED, nontoxic appearing, abdomen soft/nontender, no rebound or guarding. Concern for gastroenteritis vs ? Food poisoning. Lower suspicion for pancreatitis/cholecystitis/appendicitis/diverticulitis at this time with nontender abdomen. Low suspicion for testicular torsion. Low suspicion for severe sepsis Plan: Labs, UA, drug screen, IVF, antiemetics, p.o. challenge Please refer to course for remaining clinical decision making, interpretation of labs/imaging results, and discussions with consultants and/or family members. <ANTHONY Ojeda Last Filed: 10/25/22 18:54> Differential Diagnosis Differential Diagnoses: The differential diagnosis associated with the presentation includes <ANTHONY Ojeda Last Filed: 10/25/22 18:54> as above <ANTHONY Ojeda - Last Filed: 10/25/22 18:54> Lab Data MDM Lab Attestation statement: I reviewed the patient's lab results. <ANTHONY Ojeda - Last Filed: 10/25/22 18:54> Result Diagrams: 10/25/22 13:07 10/25/22 13:07 <ANTHONY Dasilva - Last Filed: 10/25/22 11:57> Labs: Lab Results 10/25/22 10/25/22 10/25/22 Range/Units 13:07 13:07 13:07 WBC 17.5 H (4.8-10.8) X10*3/uL RBC 5.50 (4.60-5.80) X10*6/uL Hgb 16.1 (14.0-18.0) g/dl Hct 47.5 (42.0-52.0) % MCV 86.4 (80.0-98.0) fL MCH 29.3 (27.0-33.0) pg MCHC 33.9 (31.0-36.0) g/dl RDW 12.6 (11.0-16.0) % Plt Count 290 (160-400) X10*3/uL MPV 11.7 (9.4-12.4) fL Immature Gran % (Auto) 0.4 (0.0-0.4) % Neut % (Auto) 93.2 H (45-73) % Lymph % (Auto) 3.6 L (20-40) % [place] % (Auto) 2.6 (2-11) % Eos % (Auto) 0.0 (0-4) % Baso % (Auto) 0.2 (0-2) % Lymph # (Auto) 0.6 L (1.2-4.9) X10*3/uL [place] # (Auto) 0.5 (0.1-1.2) X10*3/uL Eos # (Auto) 0.0 (0.0-0.4) X10*3/uL Baso # (Auto) 0.0 (0.0-0.2) X10*3/uL Abs Immat Gran (auto) 0.07 H (0.00-0.03) X10*3/uL Absolute Neuts (auto) 16.3 H (2.0-8.3) x10*3/uL Absolute Nucleated RBC 0.000 (0.0-0.012) X10*3/uL Nucleated RBC % (auto) 0.0 (0.0-0.2) /100WBC Smear Tech's Comments VERIFIED Sodium 144 (135-145) mmol/L Potassium 4.2 (3.3-5.1) mmol/L Chloride 105 (96-108) mmol/L Carbon Dioxide 24 (22-29) mmol/L Anion Gap 19 (12-20) BUN 16 (9-16) mg/dL Creatinine 1.08 (0.5-1.4) mg/dL Estim Creat Clear Calc 103.2 Estimated GFR > 60 Random Glucose 150 H (60-115) mg/dL Calcium 10.3 H (8.4-10.2) mg/dL Magnesium 1.9 (1.6-2.6) mg/dL Total Bilirubin 2.4 H (0.0-1.0) mg/dL AST 22 (5-37) U/L ALT 18 (0-40) U/L Alkaline Phosphatase 105 (39-117) U/L Total Protein 8.2 H (6.5-8.0) g/dL Albumin 5.4 H (3.5-5.0) g/dL Lipase 40 (8-78) U/L Urine Color Urine Appearance Urine pH (5.0-9.0) Ur Specific Avant (1.005-1.025) Urine Protein (Neg-Trace) mg/dL Urine Glucose (UA) (Negative) mg/dL Urine Ketones (Negative) mg/dL Urine Blood (Negative) Urine Nitrite (Negative) Ur Leukocyte Esterase (Negative) Urine RBC (0-2) /HPF Urine WBC (0-5) /HPF Ur Squamous Epith Cells (0-2) /HPF Urine Bacteria (None Seen) Hyaline Casts (0-2) /LPF Urine Opiates Screen (Not Detect) Urine Fentanyl Screen (Not Detect) Ur Barbiturates Screen (Not Detect) Ur Phencyclidine Scrn (Not Detect) Ur Amphetamines Screen (Not Detect) U Benzodiazepines Scrn (Not Detect) Urine Cocaine Screen (Not Detect) U Marijuana (THC) Screen (Not Detect) COVID-19 ([facility]) Negative (Negative) COVID-19 Clin Com See Note 10/25/22 10/25/22 Range/Units 14:59 14:59 WBC (4.8-10.8) X10*3/uL RBC (4.60-5.80) X10*6/uL Hgb (14.0-18.0) g/dl Hct (42.0-52.0) % MCV (80.0-98.0) fL MCH (27.0-33.0) pg MCHC (31.0-36.0) g/dl RDW (11.0-16.0) % Plt Count (160-400) X10*3/uL MPV (9.4-12.4) fL Immature Gran % (Auto) (0.0-0.4) % Neut % (Auto) (45-73) % Lymph % (Auto) (20-40) % [place] % (Auto) (2-11) % Eos % (Auto) (0-4) % Baso % (Auto) (0-2) % Lymph # (Auto) (1.2-4.9) X10*3/uL [place] # (Auto) (0.1-1.2) X10*3/uL Eos # (Auto) (0.0-0.4) X10*3/uL Baso # (Auto) (0.0-0.2) X10*3/uL Abs Immat Gran (auto) (0.00-0.03) X10*3/uL Absolute Neuts (auto) (2.0-8.3) x10*3/uL Absolute Nucleated RBC (0.0-0.012) X10*3/uL Nucleated RBC % (auto) (0.0-0.2) /100WBC Smear Tech's Comments Sodium (135-145) mmol/L Potassium (3.3-5.1) mmol/L Chloride (96-108) mmol/L Carbon Dioxide (22-29) mmol/L Anion Gap (12-20) BUN (9-16) mg/dL Creatinine (0.5-1.4) mg/dL Estim Creat Clear Calc Estimated GFR Random Glucose (60-115) mg/dL Calcium (8.4-10.2) mg/dL Magnesium (1.6-2.6) mg/dL Total Bilirubin (0.0-1.0) mg/dL AST (5-37) U/L ALT (0-40) U/L Alkaline Phosphatase (39-117) U/L Total Protein (6.5-8.0) g/dL Albumin (3.5-5.0) g/dL Lipase (8-78) U/L Urine Color Yellow Urine Appearance Clear Urine pH >= 9.0 (5.0-9.0) Ur Specific Avant >= 1.030 H (1.005-1.025) Urine Protein 100 (2+) H (Neg-Trace) mg/dL Urine Glucose (UA) Negative (Negative) mg/dL Urine Ketones 40 (Negative) mg/dL Urine Blood Small (1+) H (Negative) Urine Nitrite Negative (Negative) Ur Leukocyte Esterase Trace H (Negative) Urine RBC >20 H (0-2) /HPF Urine WBC 0-5 (0-5) /HPF Ur Squamous Epith Cells 0-2 (0-2) /HPF Urine Bacteria None Seen (None Seen) Hyaline Casts 0-2 (0-2) /LPF Urine Opiates Screen Not Detected (Not Detect) Urine Fentanyl Screen Not Detected (Not Detect) Ur Barbiturates Screen Not Detected (Not Detect) Ur Phencyclidine Scrn Not Detected (Not Detect) Ur Amphetamines Screen Not Detected (Not Detect) U Benzodiazepines Scrn Not Detected (Not Detect) Urine Cocaine Screen Not Detected (Not Detect) U Marijuana (THC) Screen POSITIVE H (Not Detect) COVID-19 ([facility]) (Negative) COVID-19 Clin Com <ANTHONY Dasilva - Last Filed: 10/25/22 11:57> Lab Results 10/25/22 10/25/22 10/25/22 Range/Units 13:07 13:07 13:07 WBC 17.5 H (4.8-10.8) X10*3/uL RBC 5.50 (4.60-5.80) X10*6/uL Hgb 16.1 (14.0-18.0) g/dl Hct 47.5 (42.0-52.0) % MCV 86.4 (80.0-98.0) fL MCH 29.3 (27.0-33.0) pg MCHC 33.9 (31.0-36.0) g/dl RDW 12.6 (11.0-16.0) % Plt Count 290 (160-400) X10*3/uL MPV 11.7 (9.4-12.4) fL Immature Gran % (Auto) 0.4 (0.0-0.4) % Neut % (Auto) 93.2 H (45-73) % Lymph % (Auto) 3.6 L (20-40) % [place] % (Auto) 2.6 (2-11) % Eos % (Auto) 0.0 (0-4) % Baso % (Auto) 0.2 (0-2) % Lymph # (Auto) 0.6 L (1.2-4.9) X10*3/uL [place] # (Auto) 0.5 (0.1-1.2) X10*3/uL Eos # (Auto) 0.0 (0.0-0.4) X10*3/uL Baso # (Auto) 0.0 (0.0-0.2) X10*3/uL Abs Immat Gran (auto) 0.07 H (0.00-0.03) X10*3/uL Absolute Neuts (auto) 16.3 H (2.0-8.3) x10*3/uL Absolute Nucleated RBC 0.000 (0.0-0.012) X10*3/uL Nucleated RBC % (auto) 0.0 (0.0-0.2) /100WBC Smear Tech's Comments VERIFIED Sodium 144 (135-145) mmol/L Potassium 4.2 (3.3-5.1) mmol/L Chloride 105 (96-108) mmol/L Carbon Dioxide 24 (22-29) mmol/L Anion Gap 19 (12-20) BUN 16 (9-16) mg/dL Creatinine 1.08 (0.5-1.4) mg/dL Estim Creat Clear Calc 103.2 Estimated GFR > 60 Random Glucose 150 H (60-115) mg/dL Calcium 10.3 H (8.4-10.2) mg/dL Magnesium 1.9 (1.6-2.6) mg/dL Total Bilirubin 2.4 H (0.0-1.0) mg/dL AST 22 (5-37) U/L ALT 18 (0-40) U/L Alkaline Phosphatase 105 (39-117) U/L Total Protein 8.2 H (6.5-8.0) g/dL Albumin 5.4 H (3.5-5.0) g/dL Lipase 40 (8-78) U/L Urine Color Urine Appearance Urine pH (5.0-9.0) Ur Specific A[place] (1.005-1.025) Urine Protein (Neg-Trace) mg/dL Urine Glucose (UA) (Negative) mg/dL Urine Ketones (Negative) mg/dL Urine Blood (Negative) Urine Nitrite (Negative) Ur Leukocyte Esterase (Negative) Urine RBC (0-2) /HPF Urine WBC (0-5) /HPF Ur Squamous Epith Cells (0-2) /HPF Urine Bacteria (None Seen) Hyaline Casts (0-2) /LPF Urine Opiates Screen (Not Detect) Urine Fentanyl Screen (Not Detect) Ur Barbiturates Screen (Not Detect) Ur Phencyclidine Scrn (Not Detect) Ur Amphetamines Screen (Not Detect) U Benzodiazepines Scrn (Not Detect) Urine Cocaine Screen (Not Detect) U Marijuana (THC) Screen (Not Detect) COVID-19 ([facility]) Negative (Negative) COVID-19 Clin Com See Note 10/25/22 10/25/22 Range/Units 14:59 14:59 WBC (4.8-10.8) X10*3/uL RBC (4.60-5.80) X10*6/uL Hgb (14.0-18.0) g/dl Hct (42.0-52.0) % MCV (80.0-98.0) fL MCH (27.0-33.0) pg MCHC (31.0-36.0) g/dl RDW (11.0-16.0) % Plt Count (160-400) X10*3/uL MPV (9.4-12.4) fL Immature Gran % (Auto) (0.0-0.4) % Neut % (Auto) (45-73) % Lymph % (Auto) (20-40) % [place] % (Auto) (2-11) % Eos % (Auto) (0-4) % Baso % (Auto) (0-2) % Lymph # (Auto) (1.2-4.9) X10*3/uL [place] # (Auto) (0.1-1.2) X10*3/uL Eos # (Auto) (0.0-0.4) X10*3/uL Baso # (Auto) (0.0-0.2) X10*3/uL Abs Immat Gran (auto) (0.00-0.03) X10*3/uL Absolute Neuts (auto) (2.0-8.3) x10*3/uL Absolute Nucleated RBC (0.0-0.012) X10*3/uL Nucleated RBC % (auto) (0.0-0.2) /100WBC Smear Tech's Comments Sodium (135-145) mmol/L Potassium (3.3-5.1) mmol/L Chloride (96-108) mmol/L Carbon Dioxide (22-29) mmol/L Anion Gap (12-20) BUN (9-16) mg/dL Creatinine (0.5-1.4) mg/dL Estim Creat Clear Calc Estimated GFR Random Glucose (60-115) mg/dL Calcium (8.4-10.2) mg/dL Magnesium (1.6-2.6) mg/dL Total Bilirubin (0.0-1.0) mg/dL AST (5-37) U/L ALT (0-40) U/L Alkaline Phosphatase (39-117) U/L Total Protein (6.5-8.0) g/dL Albumin (3.5-5.0) g/dL Lipase (8-78) U/L Urine Color Yellow Urine Appearance Clear Urine pH >= 9.0 (5.0-9.0) Ur Specific Avant >= 1.030 H (1.005-1.025) Urine Protein 100 (2+) H (Neg-Trace) mg/dL Urine Glucose (UA) Negative (Negative) mg/dL Urine Ketones 40 (Negative) mg/dL Urine Blood Small (1+) H (Negative) Urine Nitrite Negative (Negative) Ur Leukocyte Esterase Trace H (Negative) Urine RBC >20 H (0-2) /HPF Urine WBC 0-5 (0-5) /HPF Ur Squamous Epith Cells 0-2 (0-2) /HPF Urine Bacteria None Seen (None Seen) Hyaline Casts 0-2 (0-2) /LPF Urine Opiates Screen Not Detected (Not Detect) Urine Fentanyl Screen Not Detected (Not Detect) Ur Barbiturates Screen Not Detected (Not Detect) Ur Phencyclidine Scrn Not Detected (Not Detect) Ur Amphetamines Screen Not Detected (Not Detect) U Benzodiazepines Scrn Not Detected (Not Detect) Urine Cocaine Screen Not Detected (Not Detect) U Marijuana (THC) Screen POSITIVE H (Not Detect) COVID-19 ([facility]) (Negative) COVID-19 Clin Com <ANTHONY Ojeda - Last Filed: 10/25/22 18:54> External Record Review External record reviewed: Office record, Outpatient record, Prior outpatient labs and Prior outpatient radiology <ANTHONY Ojeda - Last Filed: 10/25/22 18:54> Prescription Management I considered prescription management with: Pain Medication <ANTHONY Ojeda Last Filed: 10/25/22 18:54> Discharge Plan Discharge Clinical Impression: Cyclical vomiting <ANTHONY Dasilva - Last Filed: 10/25/22 11:57> Patient Disposition: Home, Self-Care <ANTHONY Dasilva - Last Filed: 10/25/22 11:57> Instructions: Acute Nausea and Vomiting (ED) <ANTHONY Dasilva - Last Filed: 10/25/22 11:57> Prescriptions: New famotidine [Pepcid] 20 mg tablet 20 mg PO DAILY Qty: 14 0RF ondansetron 4 mg tablet,disintegrating 4 mg PO Q8H PRN (Reason: nausea and vomiting) Qty: 10 0RF alum-mag hydroxide-simeth [Maalox Advanced] 200-200-20 mg/5 mL suspension 5 ml PO 5XD PRN (Reason: dyspepsia) Qty: 30 0RF Rx Instructions: administer between meals and at bedtime No Action omeprazole 20 mg capsule,delayed release(DR/EC) 20 mg PO DAILY 30 Days Qty: 30 0RF ondansetron HCl [Zofran] 4 mg tablet 4 mg PO Q8H PRN (Reason: nausea and vomiting) Qty: 14 0RF ondansetron HCl 4 mg tablet 4 mg PO Q6H PRN (Reason: nausea and vomiting) Qty: 7 0RF <ANTHONY Dasilva - Last Filed: 10/25/22 11:57> Referrals: [facility] [Primary Care Provider] - 2 days <ANTHONY Dasilva - Last Filed: 10/25/22 11:57>
[2022-10-25] MEDS: Ondansetron ODT 4 MG TAB.RAPDIS TRANSLINGU (12:46)
[2022-10-25] MEDS: 0.9 % Sodium Chloride 1,000 ML 999 ML IV (13:08)
[2022-10-25] MEDS: Famotidine/PF 20 MG/2 ML VIAL IVPUSH (13:14)
[2022-10-25 13:18] LABS: Basophils Percent Auto 0.2 % (0-2); Hematocrit 47.5 % (42.0-52.0); Hemoglobin 16.1 g/dl (14.0-18.0); Imm Gran Abs Auto 0.07 X10*3/uL (0.00-0.03); Imm Gran Pct Auto 0.4 % (0.0-0.4); Lymphocytes Absolute Auto 0.6 X10*3/uL (1.2-4.9); Lymphocytes Percent Auto 3.6 % (20-40); MANUAL DIFF FLAG SCAN; Mean Corpuscular HGB Conc 33.9 g/dl (31.0-36.0); Mean Corpuscular Hemoglobin 29.3 pg (27.0-33.0); Mean Corpuscular Volume 86.4 fL (80.0-98.0); Mean Platelet Volume 11.7 fL (9.4-12.4); Monocytes Absolute Auto 0.5 X10*3/uL (0.1-1.2); Monocytes Percent Auto 2.6 % (2-11); Neutrophils Absolute Auto 16.3 x10*3/uL (2.0-8.3); Neutrophils Percent Auto 93.2 % (45-73); Platelet Count 290 X10*3/uL (160-400); Red Cell Distribution Width 12.6 % (11.0-16.0); SCAN SMEAR FLAG 1; White Blood Count 17.5 X10*3/uL (4.8-10.8)
[2022-10-25] MEDS: Metoclopramide HCl 10 MG/2 ML VIAL IVPUSH (13:18)
[2022-10-25 13:26] LABS: COVID-19 Test Negative (Negative); IDNOW Serial# 16C4AD1C
[2022-10-25 13:34] LABS: Alanine Aminotransferase 18 U/L (0-40); Albumin Level 5.4 g/dL (3.5-5.0); Alkaline Phosphatase 105 U/L (39-117); Anion Gap 19 (12-20); Aspartate Amino Transferase 22 U/L (5-37); Bilirubin Total 2.4 mg/dL (0.0-1.0); Blood Urea Nitrogen 16 mg/dL (9-16); Calcium 10.3 mg/dL (8.4-10.2); Carbon Dioxide 24 mmol/L (22-29); Chloride 105 mmol/L (96-108); Creatinine Clr Calc Pharmacy 103.2; Estimated Glomerular Filt Rate > 60; Glucose Random 150 mg/dL (60-115); Lipase 40 U/L (8-78); Magnesium 1.9 mg/dL (1.6-2.6); Potassium 4.2 mmol/L (3.3-5.1); Sodium 144 mmol/L (135-145); Total Protein 8.2 g/dL (6.5-8.0)
[2022-10-25 13:35] LABS: SLIDE REVIEW VERIFIED
[2022-10-25] MEDS: Lactated Ringers 1,000 ML 999 ML IV (14:36)
[2022-10-25 15:09] LABS: Appearance Urine Clear; Color Urine Yellow; Glucose Urine UA Negative (Negative); Leukocyte Esterase Urine Trace (Negative); Nitrite Urine Negative (Negative); PH >= 9.0 (5.0-9.0); Specific Gravity - Urine >= 1.030 (1.005-1.025); UMIC TRIGGER UACC YES; Urine Blood Small (1+) (Negative); Urine Ketones 40 mg/dL (Negative); Urine Protein 100 (2+) mg/dL (Neg-Trace)
[2022-10-25 15:14] LABS: Bacteria Urine None Seen (None Seen); Hyaline Casts Urine 0-2 /LPF (0-2); RBC Urine >20 /HPF (0-2); Squamous Epithelial Cell Urine 0-2 /HPF (0-2); WBC Urine 0-5 /HPF (0-5)
[2022-10-25 15:37] LABS: Amphetamine Screen Urine Not Detected (Not Detect); Barbiturates, Urine Not Detected (Not Detect); Benzodiazepines Screen Urine Not Detected (Not Detect); Cannabinoid Screen Urine POSITIVE (Not Detect); Cocaine Screen Urine Not Detected (Not Detect); Fentanyl, urine Not Detected (Not Detect); Opiate Screen Urine Not Detected (Not Detect); Phencyclidine Screen Urine Not Detected (Not Detect)
[2022-10-25 15:57] VITALS: BP 134/66; PULSE 79; RESP 16; TEMP 38.3; O2SAT 100
[2022-10-25] MEDS: Ketorolac Tromethamine 15 MG/ML VIAL IVPUSH (16:08)
[2022-10-25] MEDS: Prochlorperazine Edisylate 10 MG/2 ML VIAL 5 MG IVPUSH (16:11)
[2022-10-25] MEDS: diphenhydrAMINE HCL 50 MG/ML VIAL 25 MG IVPUSH (18:34)
[2022-10-25] MEDS: ondansetron HCL 4 MG/2 ML VIAL IVPUSH (18:34)
== END 2022-10-25 19:02 | disposition home or self-care (01) ==
PROVIDERS: Physician Assistant; Physician Assistant Medical; Emergency Provider Emergency Medicine
DX: R11.15 Cyclical vomiting syndrome unrelated to migraine (principal); F12.90 Cannabis use, unspecified, uncomplicated; Z79.899 Other long term (current) drug therapy
CPT/HCPCS: 80053; 80307; 81001; 83690; 83735; 85025; 87635; 96361; 96374; 96375; 99284; J1200; J1885; J2405; J2765

== ENCOUNTER 2023-03-19 13:46 | Emergency (ER) | payer MEDICAID, SELFPAY ==
[2023-03-19 13:58] VITALS: BP 132/64; PULSE 81; RESP 17; TEMP 36.6; O2SAT 98; BMI 25.8
--- NOTE | 2023-03-19 13:59 | ED.GENADULT ---
HPI - General Adult General Chief complaint: Nausea/Vomiting/Diarrhea Stated complaint: Nausea, Dizzy Time Seen by Provider: 03/19/23 14:52 Related Data Previous Rx's Medication Instructions Recorded omeprazole 20 mg capsule,delayed 20 mg PO DAILY 30 days #30 caps 04/26/21 release ondansetron HCl 4 mg tablet 4 mg PO Q8H PRN nausea and 04/26/21 (Zofran) vomiting #14 tabs ondansetron HCl 4 mg tablet 4 mg PO Q6H PRN nausea and 11/01/21 vomiting #7 tabs aluminum-mag hydroxide-simethicone 5 ml PO 5XD PRN dyspepsia #30 mL 10/25/22 200 mg-200 mg-20 mg/5 mL oral susp (Maalox Advanced) famotidine 20 mg tablet (Pepcid) 20 mg PO DAILY #14 tabs 10/25/22 ondansetron 4 mg disintegrating 4 mg PO Q8H PRN nausea and 10/25/22 tablet vomiting #10 tabs Allergies Allergy/AdvReac Type Severity Reaction Status Date / Time No Known Allergies Allergy Verified 03/19/23 13:57 [facility] Past Medical History Medical History No known health problems Social History Social History Substance Use Type: Marijuana Advance Directives: No Advance Directives Information Provided: Yes Physical Exam ED Vital Signs: Vital Signs - 24 hr 03/19/23 13:58 Temperature 98 F Pulse Rate 81 Respiratory Rate 17 Blood Pressure 132/64 Pulse Oximetry 98 Oxygen Delivery Method Room Air BMI result Body Mass Index 25.8 Course Course Course Narrative: This is a rapid medical exam: Additional HPI, ROS, PE not included below will be deferred to primary provider. Patient is a 32-year-old male presenting to the emergency department with epigastric pain, nausea, vomiting and diarrhea which began around 2am after eating chicken nuggets. Denies fever. Has not been able to tolerate any fluids today. Denies chest pain. Plan: labs, UA Discharge Plan Discharge Clinical Impression: Nausea vomiting and diarrhea Patient Disposition: Elopement Prescriptions: No Action omeprazole 20 mg capsule,delayed release(DR/EC) 20 mg PO DAILY 30 Days Qty: 30 0RF ondansetron HCl [Zofran] 4 mg tablet 4 mg PO Q8H PRN (Reason: nausea and vomiting) Qty: 14 0RF ondansetron HCl 4 mg tablet 4 mg PO Q6H PRN (Reason: nausea and vomiting) Qty: 7 0RF famotidine [Pepcid] 20 mg tablet 20 mg PO DAILY Qty: 14 0RF ondansetron 4 mg tablet,disintegrating 4 mg PO Q8H PRN (Reason: nausea and vomiting) Qty: 10 0RF alum-mag hydroxide-simeth [Maalox Advanced] 200-200-20 mg/5 mL suspension 5 ml PO 5XD PRN (Reason: dyspepsia) Qty: 30 0RF Rx Instructions: administer between meals and at bedtime Discharge Date/Time: 03/19/23 16:21
== END 2023-03-19 16:21 | disposition left against medical advice (07) ==
LOC: HO.ED 16:20
PROVIDERS: Emergency Provider Emergency Medicine
DX: R42 Dizziness and giddiness (principal); R11.2 Nausea with vomiting, unspecified; R19.7 Diarrhea, unspecified; Z79.899 Other long term (current) drug therapy
CPT/HCPCS: 99281

== ENCOUNTER 2023-03-19 19:54 | Emergency (ER) | payer MEDICAID, SELFPAY ==
[2023-03-19 20:07] VITALS: BP 134/66; PULSE 80; RESP 18; TEMP 36.2; O2SAT 100; BMI 25.8
--- NOTE | 2023-03-19 20:07 | ED_ITS ---
HPI - General Adult General Chief complaint: Abdominal Pain Stated complaint: Vomiting/dehydration Related Data Previous Rx's Medication Instructions Recorded omeprazole 20 mg capsule,delayed 20 mg PO DAILY 30 days #30 caps 04/26/21 release ondansetron HCl 4 mg tablet 4 mg PO Q8H PRN nausea and 04/26/21 (Zofran) vomiting #14 tabs ondansetron HCl 4 mg tablet 4 mg PO Q6H PRN nausea and 11/01/21 vomiting #7 tabs aluminum-mag hydroxide-simethicone 5 ml PO 5XD PRN dyspepsia #30 mL 10/25/22 200 mg-200 mg-20 mg/5 mL oral susp (Maalox Advanced) famotidine 20 mg tablet (Pepcid) 20 mg PO DAILY #14 tabs 10/25/22 ondansetron 4 mg disintegrating 4 mg PO Q8H PRN nausea and 10/25/22 tablet vomiting #10 tabs Allergies Allergy/AdvReac Type Severity Reaction Status Date / Time No Known Allergies Allergy Verified 03/19/23 20:07 [facility] Past Medical History Medical History No known health problems Social History Social History Substance Use Type: Marijuana Advance Directives: No Advance Directives Information Provided: Yes Physical Exam ED Vital Signs: Vital Signs - 24 hr 03/19/23 20:07 Temperature 97.1 F Pulse Rate 80 Respiratory Rate 18 Blood Pressure 134/66 Pulse Oximetry 100 Oxygen Delivery Method Room Air BMI result Body Mass Index 25.8 Course Course Course Narrative: This is a rapid medical exam: Additional HPI, ROS, PE not included below will be deferred to primary provider. Patient is a 32-year-old male presenting to the emergency department with complaint of nausea, vomiting and diarrhea since 6am today. Denies other sick family members at home. Reports LLQ pain which he describes as burning. Has been unable to tolerate PO today. Also reports burning with urination. Reports mild left flank pain. Was here earlier with same complaint but eloped from the waiting room. Plan: labs, UA Discharge Plan Discharge Clinical Impression: Nausea, vomiting, and diarrhea Patient Disposition: Elopement Prescriptions: No Action omeprazole 20 mg capsule,delayed release(DR/EC) 20 mg PO DAILY 30 Days Qty: 30 0RF ondansetron HCl [Zofran] 4 mg tablet 4 mg PO Q8H PRN (Reason: nausea and vomiting) Qty: 14 0RF ondansetron HCl 4 mg tablet 4 mg PO Q6H PRN (Reason: nausea and vomiting) Qty: 7 0RF famotidine [Pepcid] 20 mg tablet 20 mg PO DAILY Qty: 14 0RF ondansetron 4 mg tablet,disintegrating 4 mg PO Q8H PRN (Reason: nausea and vomiting) Qty: 10 0RF alum-mag hydroxide-simeth [Maalox Advanced] 200-200-20 mg/5 mL suspension 5 ml PO 5XD PRN (Reason: dyspepsia) Qty: 30 0RF Rx Instructions: administer between meals and at bedtime Discharge Date/Time: 03/19/23 20:38
== END 2023-03-19 20:38 | disposition left against medical advice (07) ==
PROVIDERS: Emergency Provider Emergency Medicine
DX: R11.2 Nausea with vomiting, unspecified (principal); R19.7 Diarrhea, unspecified; Z79.899 Other long term (current) drug therapy
CPT/HCPCS: 99281

== ENCOUNTER 2023-06-02 20:32 | Emergency (ER) | payer OTHER, MEDICAID, SELFPAY ==
[2023-06-02 20:48] VITALS: BP 142/59; PULSE 85; RESP 18; TEMP 36.6; O2SAT 99; BMI 27.3
--- NOTE | 2023-06-02 20:49 | ED_ITS ---
HPI - General Adult General Chief complaint: Wound/Laceration Stated complaint: Punctured L foot with nail Time Seen by Provider: 06/02/23 23:14 Source: patient Mode of arrival: ambulatory Limitations: no limitations History of Present Illness HPI narrative: Patient with nail punctured wound in his left foot through his work shoe while at work. Patient does not remember his last tetanus shot no other injuries Related Data Previous Rx's Medication Instructions Recorded omeprazole 20 mg capsule,delayed 20 mg PO DAILY 30 days #30 caps 04/26/21 release ondansetron HCl 4 mg tablet 4 mg PO Q8H PRN nausea and 04/26/21 (Zofran) vomiting #14 tabs ondansetron HCl 4 mg tablet 4 mg PO Q6H PRN nausea and 11/01/21 vomiting #7 tabs aluminum-mag hydroxide-simethicone 5 ml PO 5XD PRN dyspepsia #30 mL 10/25/22 200 mg-200 mg-20 mg/5 mL oral susp (Maalox Advanced) famotidine 20 mg tablet (Pepcid) 20 mg PO DAILY #14 tabs 10/25/22 ondansetron 4 mg disintegrating 4 mg PO Q8H PRN nausea and 10/25/22 tablet vomiting #10 tabs cephalexin 500 mg capsule 500 mg PO QID 10 days #40 caps 06/02/23 ciprofloxacin HCl 500 mg tablet 500 mg PO BID #20 tabs 06/02/23 (Cipro) Allergies Allergy/AdvReac Type Severity Reaction Status Date / Time No Known Allergies Allergy Verified 06/02/23 20:51 Review of Systems 2 Review of Systems: Yes all other systems are reviewed and are negative [facility] Past Medical History Medical History No known health problems Social History Social History Substance Use Type: Marijuana Advance Directives: No Advance Directives Information Provided: No Physical Exam ED Vital Signs: Vital Signs - 24 hr 06/02/23 20:48 Temperature 98 F Pulse Rate 85 Respiratory Rate 18 Blood Pressure 142/59 H Pulse Oximetry 99 Oxygen Delivery Method Room Air BMI result Body Mass Index 27.3 Extrem Ankle/foot/toe images: 2 1. Small puncture wound nontender no significant bleeding Course Course Course Narrative: This is an RME: Additional HPI, ROS, PE not included below will be deferred to primary provider. 32 year old male presenting after puncture wound of the left foot by a nail through the sole of his boot. Happened yesterday at 5 pm at work. Does not know if he's UTD on tetanus. Bleeding controlled and denies pain and fever. Plan - tetanus if not UTD in records Medical Decision Making Medical Decision Making MDM Narrative: Patient will punctured wound and the nail to his shoes high chance of getting Pseudomonas infection will give antibiotic p.o. Keflex and Cipro Discharge Plan Discharge Clinical Impression: Puncture wound of foot, left Patient Disposition: Home, Self-Care Instructions: Puncture Wound in the Foot (ED) Additional Instructions: Local care as advised Take antibiotic as prescribed Report to the ER if any signs of infection Prescriptions: New cephalexin 500 mg capsule 500 mg PO QID 10 Days Qty: 40 0RF ciprofloxacin HCl [Cipro] 500 mg tablet 500 mg PO BID Qty: 20 0RF No Action omeprazole 20 mg capsule,delayed release(DR/EC) 20 mg PO DAILY 30 Days Qty: 30 0RF ondansetron HCl [Zofran] 4 mg tablet 4 mg PO Q8H PRN (Reason: nausea and vomiting) Qty: 14 0RF ondansetron HCl 4 mg tablet 4 mg PO Q6H PRN (Reason: nausea and vomiting) Qty: 7 0RF famotidine [Pepcid] 20 mg tablet 20 mg PO DAILY Qty: 14 0RF ondansetron 4 mg tablet,disintegrating 4 mg PO Q8H PRN (Reason: nausea and vomiting) Qty: 10 0RF alum-mag hydroxide-simeth [Maalox Advanced] 200-200-20 mg/5 mL suspension 5 ml PO 5XD PRN (Reason: dyspepsia) Qty: 30 0RF Rx Instructions: administer between meals and at bedtime
[2023-06-02] MEDS: cephALEXin 500 MG CAPSULE PO (23:57)
[2023-06-02] MEDS: levoFLOXacin 500 MG TABLET PO (23:57)
[2023-06-02] MEDS: Diphth,Pertus(ACell),Tet Adult 0.5 ML SYRINGE IM (23:57)
== END 2023-06-03 00:02 | disposition home or self-care (01) ==
PROVIDERS: Emergency Provider Internal Medicine
DX: S91.332A Puncture wound without foreign body, left foot, initial encounter (principal); W45.0XXA Nail entering through skin, initial encounter; Y93.9 Activity, unspecified; Y92.9 Unspecified place or not applicable; Y99.0 Civilian activity done for income or pay
CPT/HCPCS: 90471; 90715; 99282; 99284

== ENCOUNTER 2023-10-02 19:50 | Emergency (ER) | payer MEDICAID, SELFPAY ==
[2023-10-02 20:11] VITALS: BP 116/70; PULSE 88; RESP 16; TEMP 37.3; O2SAT 99; BMI 27.6
--- NOTE | 2023-10-02 20:15 | ED_ITS ---
HPI - General Adult General Chief complaint: Nausea/Vomiting/Diarrhea Stated complaint: Stomach pain Time Seen by Provider: 10/02/23 23:50 Source: patient and old records reviewed Mode of arrival: ambulatory Limitations: no limitations History of Present Illness HPI narrative: 33 yo male with PMH of cyclical vomiting and THC use no prior surgeries states he has been doing well due to a strict diet he comes in with c/o vomiting, upper abdominal pain and typical bout of cyclical vomiting. States he thinks he didn't eat well enough. MD complaint: cyclical vomiting Onset (ago): day(s) (1) Location: abdomen Radiation: non-radiation Severity: moderate Quality: burning and aching Pain Consistency: constant Relieving factors: none Exacerbating factors: eating Associated symptoms: loss of appetite, malaise and nausea/vomiting Treatments prior to arrival: none Related Data Previous Rx's Medication Instructions Recorded omeprazole 20 mg capsule,delayed 20 mg PO DAILY 30 days #30 caps 04/26/21 release ondansetron HCl 4 mg tablet 4 mg PO Q8H PRN nausea and 04/26/21 (Zofran) vomiting #14 tabs ondansetron HCl 4 mg tablet 4 mg PO Q6H PRN nausea and 11/01/21 vomiting #7 tabs aluminum-mag hydroxide-simethicone 5 ml PO 5XD PRN dyspepsia #30 mL 10/25/22 200 mg-200 mg-20 mg/5 mL oral susp (Maalox Advanced) famotidine 20 mg tablet (Pepcid) 20 mg PO DAILY #14 tabs 10/25/22 ondansetron 4 mg disintegrating 4 mg PO Q8H PRN nausea and 10/25/22 tablet vomiting #10 tabs cephalexin 500 mg capsule 500 mg PO QID 10 days #40 caps 06/02/23 ciprofloxacin HCl 500 mg tablet 500 mg PO BID #20 tabs 06/02/23 (Cipro) metoclopramide HCl 10 mg tablet 10 mg PO Q6H PRN nausea and 10/03/23 (Reglan) vomiting #20 tabs ondansetron 4 mg disintegrating 4 mg PO Q8H PRN nausea and 10/03/23 tablet vomiting #20 tabs Allergies Allergy/AdvReac Type Severity Reaction Status Date / Time No Known Allergies Allergy Verified 10/02/23 20:17 Review of Systems 2 Review of Systems: Constitutional : No Weight loss, No Fever, No Chills ENT/Mouth : No sore throat, No Rhinorrhea Eyes: No Swelling, No Redness Cardiovascular : No Chest Pain, No SOB, No Edema Respiratory : No Cough, No Sputum, No Wheezing Gastrointestinal : Positive Nausea, Positive Vomiting, no Diarrhea, positive abdominal Pain, No Hematochezia, No Melena Genitourinary : No Dysuria, No Urinary Frequency, No Hematuria, No Urgency Musculoskeletal : No joint pain, No Myalgias, No Joint Swelling Skin : No Skin Lesions, No rash Neuro : No Weakness, No Numbness, No Dizziness, No Headache Psych : No Anxiety/Panic, No Depression Heme/Lymph: No Bruising, No Lymphadenopathy Endocrine : No Polyuria, No Polydipsia All other systems reviewed and are negative. [facility] Past Medical History Attestation statement: The following information was validated with the patient. Source: old records reviewed Medical History Cyclic vomiting syndrome Social History Social History Substance Use Type: Marijuana Advance Directives: No Advance Directives Information Provided: No Physical Exam ED Vital Signs: Vital Signs - 24 hr 10/02/23 20:11 10/02/23 21:46 10/03/23 00:00 Temperature 99.2 F 98.8 F 98.0 F Pulse Rate 88 98 90 Respiratory Rate 16 16 16 Blood Pressure 116/70 131/70 148/57 H Pulse Oximetry 99 97 98 Oxygen Delivery Method Room Air Room Air Room Air BMI result Body Mass Index 27.6 Appearance: Alert. Oriented X3. No acute distress. Eyes: Pupils equal, round and reactive to light. ENT: Pharynx normal. Neck: Normal inspection. Neck supple. CVS: Normal heart rate and rhythm. Pulses normal. Respiratory: No respiratory distress. Breath sounds normal. Abdomen: Soft and mild epigastric pain no rebound or guarding Skin: Skin warm and dry. Normal skin color. Normal skin turgor. Extremities: No lower extremity edema. No calf ttp Neuro: Oriented X 3. No motor deficit. No sensory deficit. Course Course Course Narrative: RME:? 33 yo here for eval of LUQ and LLQ burning , nausea and vomiting, and dysuria since 0600 this morning. denies diarrhea, hematuria. denies etoh or ilicit substance use. labs, ua, covid/flu swabs ordered. Full HPI, ROS and PE to be performed by the primary ED provider. Medications Administered Discontinued Medications Generic Name Dose Route Start Last Admin Trade Name Adonay PRN Reason Stop Dose Admin Droperidol 1.25 mg 10/02/23 23:56 10/03/23 00:16 Droperidol 5 Mg/2 Ml Vial IVPUSH 10/02/23 23:57 1.25 mg ONCE ONE Administration Sodium Chloride 1,000 mls @ 999 mls/hr 10/02/23 23:45 10/03/23 01:08 Ns IV 10/03/23 00:45 Infused .Q1H1M MICHEAL Infusion Medical Decision Making Medical Decision Making [facility] Narrative: 33 yo male with PMH of cyclical vomiting here with c/o typical bout c/o nausea and vomiting - at this time will need IVF, medications and labs are at his baseline. Denies change from prior bouts. No localized pain to suggest GB pathology or appendicitis. Differential Diagnosis Differential Diagnoses: The differential diagnosis associated with the presentation includes cyclical vomiting, gastritis, pancreatitis Admission/Observation Consideration of admission/observation: Escalation of care including admission/observation considered tolerating PO stable for DC Lab Data [facility] Lab Attestation statement: I reviewed the patient's lab results. 10/02/23 20:53 10/02/23 20:53 Labs: Lab Results 10/02/23 Range/Units 20:53 WBC 18.3 H (4.8-10.8) X10*3/uL RBC 5.57 (4.60-5.80) X10*6/uL Hgb 16.5 (14.0-18.0) g/dl Hct 48.3 (42.0-52.0) % MCV 86.7 (80.0-98.0) fL MCH 29.6 (27.0-33.0) pg MCHC 34.2 (31.0-36.0) g/dl RDW 12.7 (11.0-16.0) % Plt Count 290 (160-400) X10*3/uL MPV 11.5 (9.4-12.4) fL Immature Gran % (Auto) 0.5 H (0.0-0.4) % Neut % (Auto) 90.2 H (45-73) % Lymph % (Auto) 6.1 L (20-40) % Randolph % (Auto) 3.1 (2-11) % Eos % (Auto) 0.0 (0-4) % Baso % (Auto) 0.1 (0-2) % Lymph # (Auto) 1.1 L (1.2-4.9) X10*3/uL Randolph # (Auto) 0.6 (0.1-1.2) X10*3/uL Eos # (Auto) 0.0 (0.0-0.4) X10*3/uL Baso # (Auto) 0.0 (0.0-0.2) X10*3/uL Abs Immat Gran (auto) 0.09 H (0.00-0.03) X10*3/uL Absolute Neuts (auto) 16.5 H (2.0-8.3) x10*3/uL Absolute Nucleated RBC 0.000 (0.0-0.012) X10*3/uL Nucleated RBC % (auto) 0.0 (0.0-0.2) /100WBC Sodium 144 (135-145) mmol/L Potassium 4.3 (3.3-5.1) mmol/L Chloride 106 (96-108) mmol/L Carbon Dioxide 23 (22-29) mmol/L Anion Gap 19 (12-20) BUN 16 (9-16) mg/dL Creatinine 0.97 (0.5-1.4) mg/dL Estim Creat Clear Calc 113.9 Estimated GFR > 60 Random Glucose 144 H (60-115) mg/dL Calcium 10.8 H (8.4-10.2) mg/dL Magnesium 2.0 (1.6-2.6) mg/dL Total Bilirubin 1.4 H (0.0-1.0) mg/dL AST 19 (5-37) U/L ALT 16 (0-40) U/L Alkaline Phosphatase 101 (39-117) U/L Total Protein 8.9 H (6.5-8.0) g/dL Albumin 5.4 H (3.5-5.0) g/dL Lipase 10 (8-78) U/L COVID-19 ([facility]) Negative (Negative) COVID-19 Clin Com See Note Influenza Type A (MARIO) Negative (Negative) Influenza Type B (MARIO) Negative (Negative) Influenza A & B Note See Note External Record Review External record reviewed: Inpatient record Prescription Management I considered prescription management with: Other Discharge Plan Discharge Clinical Impression: Cyclical vomiting Elevated WBC count Qualifiers: Leukocytosis type: unspecified Qualified Code(s): D72.829 - Elevated white blood cell count, unspecified Patient Disposition: Home, Self-Care Instructions: Cyclic Vomiting Syndrome (ED) Additional Instructions: stay hydrated. advance diet slowly over 24 hours as tolerated. return for worsening symptoms pain fevers inability to eat or drink Prescriptions: New ondansetron 4 mg tablet,disintegrating 4 mg PO Q8H PRN (Reason: nausea and vomiting) Qty: 20 0RF metoclopramide HCl [Reglan] 10 mg tablet 10 mg PO Q6H PRN (Reason: nausea and vomiting) Qty: 20 0RF No Action omeprazole 20 mg capsule,delayed release(DR/EC) 20 mg PO DAILY 30 Days Qty: 30 0RF ondansetron HCl [Zofran] 4 mg tablet 4 mg PO Q8H PRN (Reason: nausea and vomiting) Qty: 14 0RF ondansetron HCl 4 mg tablet 4 mg PO Q6H PRN (Reason: nausea and vomiting) Qty: 7 0RF famotidine [Pepcid] 20 mg tablet 20 mg PO DAILY Qty: 14 0RF ondansetron 4 mg tablet,disintegrating 4 mg PO Q8H PRN (Reason: nausea and vomiting) Qty: 10 0RF alum-mag hydroxide-simeth [Maalox Advanced] 200-200-20 mg/5 mL suspension 5 ml PO 5XD PRN (Reason: dyspepsia) Qty: 30 0RF Rx Instructions: administer between meals and at bedtime cephalexin 500 mg capsule 500 mg PO QID 10 Days Qty: 40 0RF ciprofloxacin HCl [Cipro] 500 mg tablet 500 mg PO BID Qty: 20 0RF Stand Alone Forms: Work/School Release
[2023-10-02 20:59] LABS: MANUAL DIFF FLAG NO
[2023-10-02 21:01] LABS: Basophils Percent Auto 0.1 % (0-2); Hematocrit 48.3 % (42.0-52.0); Hemoglobin 16.5 g/dl (14.0-18.0); Imm Gran Abs Auto 0.09 X10*3/uL (0.00-0.03); Imm Gran Pct Auto 0.5 % (0.0-0.4); Lymphocytes Absolute Auto 1.1 X10*3/uL (1.2-4.9); Lymphocytes Percent Auto 6.1 % (20-40); Mean Corpuscular HGB Conc 34.2 g/dl (31.0-36.0); Mean Corpuscular Hemoglobin 29.6 pg (27.0-33.0); Mean Corpuscular Volume 86.7 fL (80.0-98.0); Mean Platelet Volume 11.5 fL (9.4-12.4); Monocytes Absolute Auto 0.6 X10*3/uL (0.1-1.2); Monocytes Percent Auto 3.1 % (2-11); Neutrophils Absolute Auto 16.5 x10*3/uL (2.0-8.3); Neutrophils Percent Auto 90.2 % (45-73); Platelet Count 290 X10*3/uL (160-400); Red Blood Count 5.57 X10*6/uL (4.60-5.80); Red Cell Distribution Width 12.7 % (11.0-16.0); SCAN SMEAR FLAG 1; White Blood Count 18.3 X10*3/uL (4.8-10.8)
[2023-10-02 21:15] LABS: COVID-19 Test Negative (Negative); IDNOW Serial# 152EDE1D
[2023-10-02 21:18] LABS: Alanine Aminotransferase 16 U/L (0-40); Albumin Level 5.4 g/dL (3.5-5.0); Alkaline Phosphatase 101 U/L (39-117); Anion Gap 19 (12-20); Aspartate Amino Transferase 19 U/L (5-37); Bilirubin Total 1.4 mg/dL (0.0-1.0); Blood Urea Nitrogen 16 mg/dL (9-16); Calcium 10.8 mg/dL (8.4-10.2); Carbon Dioxide 23 mmol/L (22-29); Chloride 106 mmol/L (96-108); Creatinine Clr Calc Pharmacy 113.9; Estimated Glomerular Filt Rate > 60; Glucose Random 144 mg/dL (60-115); IDNOW Serial# 9DB6401D; Influenza A Negative (Negative); Influenza B2 Negative (Negative); Lipase 10 U/L (8-78); Potassium 4.3 mmol/L (3.3-5.1); Sodium 144 mmol/L (135-145); Total Protein 8.9 g/dL (6.5-8.0)
[2023-10-02 21:46] VITALS: BP 131/70; PULSE 98; RESP 16; TEMP 37.1; O2SAT 97
[2023-10-03] VITALS: BP 148/57; PULSE 90; RESP 16; TEMP 36.7; O2SAT 98
[2023-10-03] MEDS: droPERidol 5 MG/2 ML VIAL 1.25 MG IVPUSH (00:16)
[2023-10-03] MEDS: 0.9 % Sodium Chloride 1,000 ML 999 ML IV (00:16)
[2023-10-03 01:23] VITALS: BP 131/46; PULSE 94; RESP 16; TEMP 36.8; O2SAT 98
--- NOTE | 2023-10-03 01:24 | MHC.EDTECH ---
PATIENT SAID HE STILL NOT ABLE TO GIVE URINE SAMPLE ,RN AWARE .
== END 2023-10-03 01:42 | disposition home or self-care (01) ==
PROVIDERS: Physician Assistant Medical; Emergency Provider Emergency Medicine
DX: R11.15 Cyclical vomiting syndrome unrelated to migraine (principal); Z11.52 Encounter for screening for COVID-19
CPT/HCPCS: 80053; 83690; 83735; 85025; 87502; 87635; 96361; 96374; 99284; J1790

== ENCOUNTER 2023-10-30 15:23 | Emergency (ER) | payer MEDICAID, SELFPAY ==
[2023-10-30 15:32] VITALS: BP 119/71; PULSE 63; RESP 18; TEMP 37.1; O2SAT 100; BMI 26.9
--- NOTE | 2023-10-30 15:33 | ED.GENADULT ---
HPI - General Adult General Chief complaint: Abdominal Pain Stated complaint: Vomiting Related Data Previous Rx's Medication Instructions Recorded omeprazole 20 mg capsule,delayed 20 mg PO DAILY 30 days #30 caps 04/26/21 release ondansetron HCl 4 mg tablet 4 mg PO Q8H PRN nausea and 04/26/21 (Zofran) vomiting #14 tabs ondansetron HCl 4 mg tablet 4 mg PO Q6H PRN nausea and 11/01/21 vomiting #7 tabs aluminum-mag hydroxide-simethicone 5 ml PO 5XD PRN dyspepsia #30 mL 10/25/22 200 mg-200 mg-20 mg/5 mL oral susp (Maalox Advanced) famotidine 20 mg tablet (Pepcid) 20 mg PO DAILY #14 tabs 10/25/22 ondansetron 4 mg disintegrating 4 mg PO Q8H PRN nausea and 10/25/22 tablet vomiting #10 tabs cephalexin 500 mg capsule 500 mg PO QID 10 days #40 caps 06/02/23 ciprofloxacin HCl 500 mg tablet 500 mg PO BID #20 tabs 06/02/23 (Cipro) metoclopramide HCl 10 mg tablet 10 mg PO Q6H PRN nausea and 10/03/23 (Reglan) vomiting #20 tabs ondansetron 4 mg disintegrating 4 mg PO Q8H PRN nausea and 10/03/23 tablet vomiting #20 tabs Allergies Allergy/AdvReac Type Severity Reaction Status Date / Time No Known Allergies Allergy Verified 10/30/23 15:35 [facility] Past Medical History Medical History Cyclic vomiting syndrome Social History Social History Unable to assess alcohol history related to: Unknown Substance Use Type: Marijuana Physical Exam ED Vital Signs: Vital Signs - 24 hr 10/30/23 15:32 Temperature 98.7 F Pulse Rate 63 Respiratory Rate 18 Blood Pressure 119/71 Pulse Oximetry 100 Oxygen Delivery Method Room Air BMI result Body Mass Index 26.9 Course Course Course Narrative: This is an RME: Additional HPI, ROS, PE not included below will be deferred to primary provider. Patient is a 33-year-old male who presents emergency department stating he awoke today with left lower quadrant abdominal pain nausea vomiting which she attributes to possibly something he ate last night. Reports approximately 10 episodes of vomiting, chills. Denies hematemesis, hematochezia, melena. He took Zofran today at 12:00 that was previously prescribed to him without any improvement. He is actively vomiting in triage. history of cyclical vomiting Medical Decision Making Lab Data 10/30/23 16:01 10/30/23 16:01 Labs: Lab Results 10/30/23 Range/Units 16:01 WBC 20.5 H (4.8-10.8) X10*3/uL RBC 5.51 (4.60-5.80) X10*6/uL Hgb 16.3 (14.0-18.0) g/dl Hct 47.7 (42.0-52.0) % MCV 86.6 (80.0-98.0) fL MCH 29.6 (27.0-33.0) pg MCHC 34.2 (31.0-36.0) g/dl RDW 12.4 (11.0-16.0) % Plt Count 336 (160-400) X10*3/uL MPV 11.4 (9.4-12.4) fL Immature Gran % (Auto) 0.5 H (0.0-0.4) % Neut % (Auto) 92.8 H (45-73) % Lymph % (Auto) 4.4 L (20-40) % [place] % (Auto) 2.1 (2-11) % Eos % (Auto) 0.0 (0-4) % Baso % (Auto) 0.2 (0-2) % Lymph # (Auto) 0.9 L (1.2-4.9) X10*3/uL [place] # (Auto) 0.4 (0.1-1.2) X10*3/uL Eos # (Auto) 0.0 (0.0-0.4) X10*3/uL Baso # (Auto) 0.0 (0.0-0.2) X10*3/uL Abs Immat Gran (auto) 0.11 H (0.00-0.03) X10*3/uL Absolute Neuts (auto) 19.0 H (2.0-8.3) x10*3/uL Absolute Nucleated RBC 0.000 (0.0-0.012) X10*3/uL Nucleated RBC % (auto) 0.0 (0.0-0.2) /100WBC Smear Tech's Comments VERIFIED Sodium 144 (135-145) mmol/L Potassium 4.4 (3.3-5.1) mmol/L Chloride 105 (96-108) mmol/L Carbon Dioxide 25 (22-29) mmol/L Anion Gap 18 (12-20) BUN 18 H (9-16) mg/dL Creatinine 1.06 (0.5-1.4) mg/dL Estim Creat Clear Calc 104.2 Estimated GFR > 60 Random Glucose 151 H (60-115) mg/dL Calcium 10.9 H (8.4-10.2) mg/dL Total Bilirubin 1.5 H (0.0-1.0) mg/dL AST 18 (5-37) U/L ALT 17 (0-40) U/L Alkaline Phosphatase 101 (39-117) U/L Total Protein 8.9 H (6.5-8.0) g/dL Albumin 5.7 H (3.5-5.0) g/dL Lipase 10 (8-78) U/L Influenza Type A (PCR) NEGATIVE (Negative) Influenza Type B (PCR) NEGATIVE (Negative) RSV RNA Qual (PCR) NEGATIVE (Negative) SARS-CoV-2 RNA (RT-PCR) NEGATIVE (Negative) Discharge Plan Discharge Clinical Impression: Abdominal pain Patient Disposition: Left W/O Completing Treatment Prescriptions: No Action omeprazole 20 mg capsule,delayed release(DR/EC) 20 mg PO DAILY 30 Days Qty: 30 0RF ondansetron HCl [Zofran] 4 mg tablet 4 mg PO Q8H PRN (Reason: nausea and vomiting) Qty: 14 0RF ondansetron HCl 4 mg tablet 4 mg PO Q6H PRN (Reason: nausea and vomiting) Qty: 7 0RF famotidine [Pepcid] 20 mg tablet 20 mg PO DAILY Qty: 14 0RF ondansetron 4 mg tablet,disintegrating 4 mg PO Q8H PRN (Reason: nausea and vomiting) Qty: 10 0RF alum-mag hydroxide-simeth [Maalox Advanced] 200-200-20 mg/5 mL suspension 5 ml PO 5XD PRN (Reason: dyspepsia) Qty: 30 0RF Rx Instructions: administer between meals and at bedtime cephalexin 500 mg capsule 500 mg PO QID 10 Days Qty: 40 0RF ciprofloxacin HCl [Cipro] 500 mg tablet 500 mg PO BID Qty: 20 0RF ondansetron 4 mg tablet,disintegrating 4 mg PO Q8H PRN (Reason: nausea and vomiting) Qty: 20 0RF metoclopramide HCl [Reglan] 10 mg tablet 10 mg PO Q6H PRN (Reason: nausea and vomiting) Qty: 20 0RF Discharge Date/Time: 10/30/23 19:23
[2023-10-30 16:09] LABS: Basophils Percent Auto 0.2 % (0-2); Hematocrit 47.7 % (42.0-52.0); Hemoglobin 16.3 g/dl (14.0-18.0); Imm Gran Abs Auto 0.11 X10*3/uL (0.00-0.03); Imm Gran Pct Auto 0.5 % (0.0-0.4); Lymphocytes Absolute Auto 0.9 X10*3/uL (1.2-4.9); Lymphocytes Percent Auto 4.4 % (20-40); MANUAL DIFF FLAG SCAN; Mean Corpuscular HGB Conc 34.2 g/dl (31.0-36.0); Mean Corpuscular Hemoglobin 29.6 pg (27.0-33.0); Mean Corpuscular Volume 86.6 fL (80.0-98.0); Mean Platelet Volume 11.4 fL (9.4-12.4); Monocytes Absolute Auto 0.4 X10*3/uL (0.1-1.2); Monocytes Percent Auto 2.1 % (2-11); Neutrophils Percent Auto 92.8 % (45-73); Platelet Count 336 X10*3/uL (160-400); Red Blood Count 5.51 X10*6/uL (4.60-5.80); Red Cell Distribution Width 12.4 % (11.0-16.0); SCAN SMEAR FLAG 1; White Blood Count 20.5 X10*3/uL (4.8-10.8)
[2023-10-30 16:22] LABS: Alanine Aminotransferase 17 U/L (0-40); Albumin Level 5.7 g/dL (3.5-5.0); Alkaline Phosphatase 101 U/L (39-117); Anion Gap 18 (12-20); Aspartate Amino Transferase 18 U/L (5-37); Bilirubin Total 1.5 mg/dL (0.0-1.0); Blood Urea Nitrogen 18 mg/dL (9-16); Calcium 10.9 mg/dL (8.4-10.2); Carbon Dioxide 25 mmol/L (22-29); Chloride 105 mmol/L (96-108); Creatinine Clr Calc Pharmacy 104.2; Estimated Glomerular Filt Rate > 60; Glucose Random 151 mg/dL (60-115); Lipase 10 U/L (8-78); Potassium 4.4 mmol/L (3.3-5.1); Sodium 144 mmol/L (135-145); Total Protein 8.9 g/dL (6.5-8.0)
[2023-10-30 16:33] LABS: SLIDE REVIEW VERIFIED
[2023-10-30 16:49] LABS: Influenza A PCR NEGATIVE (Negative); Influenza B PCR NEGATIVE (Negative); Resp Syncy Virus RNA Qual PCR NEGATIVE (Negative); SARS COV2 PCR INHOUSE NEGATIVE (Negative)
== END 2023-10-30 19:23 | disposition left against medical advice (07) ==
PROVIDERS: Nurse Practitioner Family; Emergency Provider Emergency Medicine
DX: R10.32 Left lower quadrant pain (principal); R11.2 Nausea with vomiting, unspecified; Z11.52 Encounter for screening for COVID-19; Z20.828 Contact with and (suspected) exposure to other viral communicable diseases
CPT/HCPCS: 0241U; 80053; 83690; 85025; 99281; 99283

== ENCOUNTER 2023-11-01 08:59 | Emergency (ER) | payer MEDICAID, SELFPAY ==
--- NOTE | ~2023-11-01 | CT_ITS ---
EXAMINATION: CT ABDOMEN AND PELVIS WITHOUT CONTRAST CLINICAL INFORMATION: Left flank pain, hematuria COMPARISON: CT abdomen and pelvis 04/26/2021 TECHNIQUE: Multidetector volumetric imaging was performed from the superior aspect of the liver through the pubic symphysis. Sagittal and coronal reformatted images were obtained on the technologist's workstation. This CT examination was performed using dose optimization techniques as appropriate, variously including the following: *Automated exposure control *Adjustment of mA and/or kV according to patient size (this includes techniques or standardized protocols for targeted exams where dose is matched to indication/reason for exam; i.e. extremities or head) *Use of iterative reconstruction technique DLP: 524 mGy-cm FINDINGS: LUNG BASES: Unremarkable. ABDOMINAL AND PELVIC WALL: Unremarkable. LIVER AND BILIARY TREE: A few stable subcentimeter hepatic hypodensities too small to characterize likely reflect cysts. GALLBLADDER: Unremarkable. PANCREAS: Unremarkable. SPLEEN: Unremarkable. ADRENAL GLANDS: Unremarkable. KIDNEYS AND URETERS: No hydronephrosis or nephrolithiasis. GASTROINTESTINAL TRACT: Colonic diverticulosis without evidence of diverticulitis. VASCULAR: Unremarkable. LYMPH NODES/PERITONEUM: A 3.8 cm fluid attenuation structure along the left external iliac vasculature unchanged from 2020 which may reflect a lymphangioma or lymphocele. No lymphadenopathy. FREE FLUID: None. BLADDER: Unremarkable. PELVIC VISCERA: Unremarkable. OSSEOUS STRUCTURES: Unremarkable. CT/CT abdomen pelvis wo IV con IMPRESSION: No hydronephrosis or nephrolithiasis. No findings to explain symptoms of hematuria and flank pain.
[2023-11-01 09:10] VITALS: BP 149/100; PULSE 78; RESP 18; TEMP 36.5; O2SAT 99; BMI 25.8
[2023-11-01 09:37] LABS: MANUAL DIFF FLAG NO
[2023-11-01 09:38] LABS: Basophils Absolute Auto 0.1 X10*3/uL (0.0-0.2); Basophils Percent Auto 0.4 % (0-2); Eosinophils Percent Auto 0.1 % (0-4); Hematocrit 43.4 % (42.0-52.0); Hemoglobin 15.5 g/dl (14.0-18.0); Imm Gran Abs Auto 0.09 X10*3/uL (0.00-0.03); Imm Gran Pct Auto 0.5 % (0.0-0.4); Lymphocytes Absolute Auto 2.1 X10*3/uL (1.2-4.9); Lymphocytes Percent Auto 12.3 % (20-40); Mean Corpuscular HGB Conc 35.7 g/dl (31.0-36.0); Mean Corpuscular Volume 84.1 fL (80.0-98.0); Mean Platelet Volume 11.4 fL (9.4-12.4); Monocytes Absolute Auto 0.7 X10*3/uL (0.1-1.2); Neutrophils Absolute Auto 14.2 x10*3/uL (2.0-8.3); Neutrophils Percent Auto 82.7 % (45-73); Platelet Count 313 X10*3/uL (160-400); Red Blood Count 5.16 X10*6/uL (4.60-5.80); Red Cell Distribution Width 12.2 % (11.0-16.0); White Blood Count 17.1 X10*3/uL (4.8-10.8)
[2023-11-01 09:52] LABS: Alanine Aminotransferase 24 U/L (0-40); Albumin Level 5.2 g/dL (3.5-5.0); Alkaline Phosphatase 94 U/L (39-117); Anion Gap 18 (12-20); Aspartate Amino Transferase 47 U/L (5-37); Bilirubin Total 1.2 mg/dL (0.0-1.0); Blood Urea Nitrogen 19 mg/dL (9-16); Calcium 10.4 mg/dL (8.4-10.2); Carbon Dioxide 21 mmol/L (22-29); Chloride 106 mmol/L (96-108); Creatinine Clr Calc Pharmacy 106.2; Estimated Glomerular Filt Rate > 60; Glucose Random 133 mg/dL (60-115); Potassium 3.4 mmol/L (3.3-5.1); Sodium 142 mmol/L (135-145); Total Protein 8.2 g/dL (6.5-8.0)
[2023-11-01 10:18] LABS: Influenza A PCR NEGATIVE (Negative); Influenza B PCR NEGATIVE (Negative); Resp Syncy Virus RNA Qual PCR NEGATIVE (Negative); SARS COV2 PCR INHOUSE NEGATIVE (Negative)
--- NOTE | 2023-11-01 10:39 | ED.ABDPAIN ---
HPI - Abdominal Pain General Chief Complaint: Abdominal Pain Stated Complaint: Nausea, vomiting Time Seen by Provider: 11/01/23 10:31 Source: patient and RN notes reviewed Mode of arrival: ambulatory Limitations: no limitations History of Present Illness HPI narrative: This is a 33-year-old male, with a past medical history of cyclical vomiting, presenting to the emergency department with complaints of nausea and vomiting since this morning. Patient states that her symptoms woke him up this morning. He also has associated abdominal pain only with vomiting. Also endorsing dysuria. No fevers, chills, chest pain, shortness for breath, diarrhea or constipation. He states he has a history of cyclical vomiting syndrome, symptoms feel similar. No other complaints or concerns at this time. MD elicited complaint: abdominal pain Pertinent past history: none Location: none Exacerbating factors: nothing Relieving factors: nothing Associated symptoms: nausea, vomiting and dysuria Related Data Previous Rx's Medication Instructions Recorded omeprazole 20 mg capsule,delayed 20 mg PO DAILY 30 days #30 caps 04/26/21 release ondansetron HCl 4 mg tablet 4 mg PO Q8H PRN nausea and 04/26/21 (Zofran) vomiting #14 tabs ondansetron HCl 4 mg tablet 4 mg PO Q6H PRN nausea and 11/01/21 vomiting #7 tabs aluminum-mag hydroxide-simethicone 5 ml PO 5XD PRN dyspepsia #30 mL 10/25/22 200 mg-200 mg-20 mg/5 mL oral susp (Maalox Advanced) famotidine 20 mg tablet (Pepcid) 20 mg PO DAILY #14 tabs 10/25/22 ondansetron 4 mg disintegrating 4 mg PO Q8H PRN nausea and 10/25/22 tablet vomiting #10 tabs cephalexin 500 mg capsule 500 mg PO QID 10 days #40 caps 06/02/23 ciprofloxacin HCl 500 mg tablet 500 mg PO BID #20 tabs 06/02/23 (Cipro) metoclopramide HCl 10 mg tablet 10 mg PO Q6H PRN nausea and 10/03/23 (Reglan) vomiting #20 tabs ondansetron 4 mg disintegrating 4 mg PO Q8H PRN nausea and 10/03/23 tablet vomiting #20 tabs Allergies Allergy/AdvReac Type Severity Reaction Status Date / Time No Known Allergies Allergy Verified 10/30/23 15:35 Review of Systems Review of Systems Yes all other systems are reviewed and are negative Constitutional: Reports as per [facility] Past Medical History Medical History Cyclic vomiting syndrome Social History Social History Unable to assess alcohol history related to: Unknown Smoked in Last 30 Days: No Use of substances other than those prescribed or required for medical reasons: Yes Substance Use Type: Marijuana Substance Use Frequency: Monthly Advance Directives: No Advance Directives Information Provided: No Physical Exam ED Vital Signs: Vital Signs - 24 hr 11/01/23 09:10 11/01/23 11:50 11/01/23 15:40 Temperature 97.7 F 98.3 F 98.2 F Pulse Rate 78 72 86 Respiratory Rate 18 16 20 Blood Pressure 149/100 H 113/63 125/70 Pulse Oximetry 99 95 98 Oxygen Delivery Method Room Air Room Air Room Air BMI result Body Mass Index 25.8 Const General: cooperative, comfortable and no acute distress Orientation/consciousness: patient oriented x3 Limitations: no limitations [facility] Head: Yes normal to inspection, Yes normocephalic and Yes atraumatic Ears: hearing grossly normal bilaterally General nose exam: Normal external nose present Face and sinus: Yes normal facial exam Mouth: Normal oral and palatal mucosa present, oropharynx normal and moist mucous membranes Throat: Yes posterior oropharynx normal Eyes General: appearance normal, both eyes and all related structures Eyelids: Yes eyelids normal Conjunctivae: conjunctivae normal Sclerae: sclerae normal Pupils: Equal, round and reactive pupils present EOM: EOMs intact bilaterally Neck Neck: Yes normal visual inspection, Yes full ROM and Yes no lymphadenopathy Lymphatic: no lymphadenopathy noted Chest Chest palpation & inspection: normal inspection of the chest Resp Effort & Inspection: normal respiratory effort and able to speak in complete sentences Auscultation: clear to auscultation bilaterally, no crackles, no rales, no rhonchi and no wheezes Cardio Rate: regular rate Rhythm: regular rhythm Heart sounds: S1 normal heart sound present and S2 normal heart sound present GI Other: Abdomen is soft, nontender, nondistended Inspection: Yes normal to inspection General: Yes no CVA tenderness Back/Spine/Pelvis Back: no CVA tenderness Skin General skin exam: no rashes or lesions noted Trauma: no lacerations or abrasions Wounds: no wounds Neuro General: patient oriented x3 and moves all extremities Cranial nerves: Yes Equal, round and reactive pupils present Extrem General: Yes normal to inspection Right upper extremity: normal to inspection Left upper extremity: normal to inspection Right lower extremity: normal to inspection Left lower extremity: normal to inspection Course Reevaluation(s) Reevaluation #1: Patient feeling much better. Upon assessment of his workup today, patient has significant amount of blood. Patient has not had a CT scan in several years. He has a history of hematuria however this does not appear to be worked up. He does endorse some left-sided flank pain, will obtain CT scan for evaluation of obstructive uropathy. Time: 13:16 Reevaluation #2: He still continues to feel well, patient was trialed with food and drink, able to tolerate without any return of nausea or vomiting were abdominal pain. CT abdomen and pelvis returns, no evidence of nephrolithiasis, no other abnormality seen. Unclear why he has hematuria. Discussed this with patient, given urology referral. Also advised to follow-up with the PCP, referred to [facility]. Patient given return precautions. He has antiemetics at home, advised to slowly advanced diet, and given return precautions. He understands and agrees with plan. Patient stable for discharge Time: 16:34 Medical Decision Making Medical Decision Making [facility] Narrative: This is a 33-year-old male, with a history of cyclical vomiting syndrome, presenting to the emergency department complaints of nausea and vomiting which started this morning. On arrival, the patient mildly hypertensive at 149/100. All other vital signs within normal limits. He is afebrile. Abdomen is soft and nontender. Differential diagnoses include cyclical vomiting syndrome, appendicitis, cholecystitis, cholangitis, gastroenteritis, gastritis. Plan: Labs, UA, IV fluids, IV antiemetics, ppi, and Ativan. Differential Diagnosis Differential Diagnoses: The differential diagnosis associated with the presentation includes See above Admission/Observation Consideration of admission/observation: Escalation of care including admission/observation considered Escalation of care including admission/observation considered however given workup today not warranted at this time. Lab Data [facility] Lab Attestation statement: I reviewed the patient's lab results. Patient has slight leukocytosis at 17.1, likely reactive given cyclic vomiting. Electrolytes within normal limits. BUN elevated at 19, creatinine around his baseline at 1.04. Slightly hyperglycemic at 1:33 a.m., total bili 1.2, he has a history of hyperbilirubinemia. AST slightly elevated, alk-phos and ALT within normal limits. Nondiagnostic. Urine with 100+ protein, and large blood, rbc's. No evidence of infection. Patient tested negative for influenza, RSV, COVID. 11/01/23 09:32 11/01/23 09:32 Labs: Lab Results 11/01/23 11/01/23 Range/Units 09:32 12:27 WBC 17.1 H (4.8-10.8) X10*3/uL RBC 5.16 (4.60-5.80) X10*6/uL Hgb 15.5 (14.0-18.0) g/dl Hct 43.4 (42.0-52.0) % MCV 84.1 (80.0-98.0) fL MCH 30.0 (27.0-33.0) pg MCHC 35.7 (31.0-36.0) g/dl RDW 12.2 (11.0-16.0) % Plt Count 313 (160-400) X10*3/uL MPV 11.4 (9.4-12.4) fL Immature Gran % (Auto) 0.5 H (0.0-0.4) % Neut % (Auto) 82.7 H (45-73) % Lymph % (Auto) 12.3 L (20-40) % Barron % (Auto) 4.0 (2-11) % Eos % (Auto) 0.1 (0-4) % Baso % (Auto) 0.4 (0-2) % Lymph # (Auto) 2.1 (1.2-4.9) X10*3/uL Barron # (Auto) 0.7 (0.1-1.2) X10*3/uL Eos # (Auto) 0.0 (0.0-0.4) X10*3/uL Baso # (Auto) 0.1 (0.0-0.2) X10*3/uL Abs Immat Gran (auto) 0.09 H (0.00-0.03) X10*3/uL Absolute Neuts (auto) 14.2 H (2.0-8.3) x10*3/uL Absolute Nucleated RBC 0.000 (0.0-0.012) X10*3/uL Nucleated RBC % (auto) 0.0 (0.0-0.2) /100WBC Sodium 142 (135-145) mmol/L Potassium 3.4 D (3.3-5.1) mmol/L Chloride 106 (96-108) mmol/L Carbon Dioxide 21 L (22-29) mmol/L Anion Gap 18 (12-20) BUN 19 H (9-16) mg/dL Creatinine 1.04 (0.5-1.4) mg/dL Estim Creat Clear Calc 106.2 Estimated GFR > 60 Random Glucose 133 H (60-115) mg/dL Calcium 10.4 H (8.4-10.2) mg/dL Total Bilirubin 1.2 H (0.0-1.0) mg/dL AST 47 H (5-37) U/L ALT 24 (0-40) U/L Alkaline Phosphatase 94 (39-117) U/L Total Protein 8.2 H (6.5-8.0) g/dL Albumin 5.2 H (3.5-5.0) g/dL Urine Color Dark Yellow Urine Appearance Clear Urine pH 6.0 (5.0-9.0) Ur Specific [place] >= 1.030 H (1.005-1.025) Urine Protein 100 (2+) H (Neg-Trace) mg/dL Urine Glucose (UA) Negative (Negative) mg/dL Urine Ketones 80 (Negative) mg/dL Urine Blood Large (3+) H (Negative) Urine Nitrite Negative (Negative) Ur Leukocyte Esterase Negative (Negative) Urine RBC >20 H (0-2) /HPF Urine WBC 0-5 (0-5) /HPF Ur Squamous Epith Cells 0-2 (0-2) /HPF Urine Bacteria None Seen (None Seen) Hyaline Casts 3-5 (0-2) /LPF Influenza Type A (PCR) NEGATIVE (Negative) Influenza Type B (PCR) NEGATIVE (Negative) RSV RNA Qual (PCR) NEGATIVE (Negative) SARS-CoV-2 RNA (RT-PCR) NEGATIVE (Negative) Radiology Impression Discussion of test interpretation with radiology: I have reviewed the radiologist's reading. Radiologist Impression: EXAMINATION: CT ABDOMEN AND PELVIS WITHOUT CONTRAST CLINICAL INFORMATION: Left flank pain, hematuria COMPARISON: CT abdomen and pelvis 04/26/2021 TECHNIQUE: Multidetector volumetric imaging was performed from the superior aspect of the liver through the pubic symphysis. Sagittal and coronal reformatted images were obtained on the technologist's workstation. This CT examination was performed using dose optimization techniques as appropriate, variously including the following: *Automated exposure control *Adjustment of mA and/or kV according to patient size (this includes techniques or standardized protocols for targeted exams where dose is matched to indication/reason for exam; i.e. extremities or head) *Use of iterative reconstruction technique DLP: 524 mGy-cm FINDINGS: LUNG BASES: Unremarkable. ABDOMINAL AND PELVIC WALL: Unremarkable. LIVER AND BILIARY TREE: A few stable subcentimeter hepatic hypodensities too small to characterize likely reflect cysts. GALLBLADDER: Unremarkable. PANCREAS: Unremarkable. SPLEEN: Unremarkable. ADRENAL GLANDS: Unremarkable. KIDNEYS AND URETERS: No hydronephrosis or nephrolithiasis. GASTROINTESTINAL TRACT: Colonic diverticulosis without evidence of diverticulitis. VASCULAR: Unremarkable. LYMPH NODES/PERITONEUM: A 3.8 cm fluid attenuation structure along the left external iliac vasculature unchanged from 2020 which may reflect a lymphangioma or lymphocele. No lymphadenopathy. FREE FLUID: None. BLADDER: Unremarkable. PELVIC VISCERA: Unremarkable. OSSEOUS STRUCTURES: Unremarkable. CT/CT abdomen pelvis wo IV con IMPRESSION: No hydronephrosis or nephrolithiasis. No findings to explain symptoms of hematuria and flank pain. Dictated By: Salma Freire MD Medications Administered Discontinued Medications Generic Name Dose Route Start Last Admin Trade Name Freq PRN Reason Stop Dose Admin Famotidine 20 mg 11/01/23 10:44 11/01/23 11:44 Famotidine/Pf 20 Mg/2 Ml Vial IVPUSH 11/01/23 10:45 20 mg ONCE ONE Administration Sodium Chloride 1,000 mls @ 999 mls/hr 11/01/23 10:40 11/01/23 14:46 Ns IV 11/01/23 11:40 Infused .Q1H1M ONE Infusion Lorazepam 1 mg 11/01/23 10:44 11/01/23 11:44 Lorazepam 2 Mg/Ml Vial IVPUSH 03/17/24 10:45 1 mg ONCE ONE Administration Ondansetron HCl 4 mg 11/01/23 10:39 11/01/23 11:44 Ondansetron Hcl 4 Mg/2 Ml Vial IVPUSH 11/01/23 10:40 4 mg ONCE ONE Administration Discharge Plan Discharge Clinical Impression: Cyclical vomiting, Hematuria Patient Disposition: Home, Self-Care Instructions: Acute Nausea and Vomiting (ED) Additional Instructions: You were seen in the emergency department due to nausea and vomiting. We medicated with fluids, Pepcid, Ativan, and Zofran. Your CT scan does not show any abnormalities. Drink plenty of fluids and get plenty of rest. Stick to a bland diet, avoid spicy or fried foods. You also have blood in her urine, your urine does not appear to be infected however you have had this in the past. I suggest you follow-up with a urologist for further management. Call to make an appointment. It is also very important that you have a primary care physician, please call to make an appointment. If any new or worsening symptoms occur including but not limited to worsening nausea, vomiting, chest pain, shortness of breath, please return for re-evaluation. Prescriptions: No Action omeprazole 20 mg capsule,delayed release(DR/EC) 20 mg PO DAILY 30 Days Qty: 30 0RF ondansetron HCl [Zofran] 4 mg tablet 4 mg PO Q8H PRN (Reason: nausea and vomiting) Qty: 14 0RF ondansetron HCl 4 mg tablet 4 mg PO Q6H PRN (Reason: nausea and vomiting) Qty: 7 0RF famotidine [Pepcid] 20 mg tablet 20 mg PO DAILY Qty: 14 0RF ondansetron 4 mg tablet,disintegrating 4 mg PO Q8H PRN (Reason: nausea and vomiting) Qty: 10 0RF alum-mag hydroxide-simeth [Maalox Advanced] 200-200-20 mg/5 mL suspension 5 ml PO 5XD PRN (Reason: dyspepsia) Qty: 30 0RF Rx Instructions: administer between meals and at bedtime cephalexin 500 mg capsule 500 mg PO QID 10 Days Qty: 40 0RF ciprofloxacin HCl [Cipro] 500 mg tablet 500 mg PO BID Qty: 20 0RF ondansetron 4 mg tablet,disintegrating 4 mg PO Q8H PRN (Reason: nausea and vomiting) Qty: 20 0RF metoclopramide HCl [Reglan] 10 mg tablet 10 mg PO Q6H PRN (Reason: nausea and vomiting) Qty: 20 0RF Referrals: [facility]Provider Group] [facility] [Primary Care Provider] - Stand Alone Forms: Work/School Release
[2023-11-01] MEDS: 0.9 % Sodium Chloride 1,000 ML 999 ML IV (11:44)
[2023-11-01] MEDS: LORazepam 2 MG/ML VIAL 1 MG IVPUSH (11:44)
[2023-11-01] MEDS: ondansetron HCL 4 MG/2 ML VIAL IVPUSH (11:44)
[2023-11-01] MEDS: Famotidine/PF 20 MG/2 ML VIAL IVPUSH (11:44)
[2023-11-01 11:50] VITALS: BP 113/63; PULSE 72; RESP 16; TEMP 36.8; O2SAT 95
--- NOTE | 2023-11-01 12:31 | PC.NURSE ---
PT REPORTING SIG IMPROVEMENT WITH SX, DENIES PAIN, NAUSEA AT THIS TIME, APPEARS IN NAD. URINE SPECIMEN COLLECTED AND SENT.
[2023-11-01 12:34] LABS: Appearance Urine Clear; Color Urine Dark Yellow; Glucose Urine UA Negative (Negative); Leukocyte Esterase Urine Negative (Negative); Nitrite Urine Negative (Negative); Specific Gravity - Urine >= 1.030 (1.005-1.025); UMIC TRIGGER UACC YES; Urine Blood Large (3+) (Negative); Urine Ketones 80 mg/dL (Negative); Urine Protein 100 (2+) mg/dL (Neg-Trace)
[2023-11-01 12:49] LABS: Bacteria Urine None Seen (None Seen); RBC Urine >20 /HPF (0-2); Squamous Epithelial Cell Urine 0-2 /HPF (0-2); WBC Urine 0-5 /HPF (0-5)
[2023-11-01 15:40] VITALS: BP 125/70; PULSE 86; RESP 20; TEMP 36.8; O2SAT 98
--- NOTE | 2023-11-01 16:27 | PC.NURSE ---
Patient states he feels much better at the moment, PO trial before discharge.
[2023-11-01 17:06] VITALS: BP 125/70; PULSE 86; RESP 20; TEMP 36.8; O2SAT 98
== END 2023-11-01 17:14 | disposition home or self-care (01) ==
PROVIDERS: Physician Assistant Medical; Emergency Provider Emergency Medicine
DX: R11.15 Cyclical vomiting syndrome unrelated to migraine (principal); R31.9 Hematuria, unspecified; Z11.52 Encounter for screening for COVID-19; Z20.828 Contact with and (suspected) exposure to other viral communicable diseases
CPT/HCPCS: 0241U; 36415; 74176; 80053; 81001; 85025; 96361; 96374; 96375; 99284; J2060; J2405

== ENCOUNTER 2024-03-02 12:12 | Emergency (ER) | payer MEDICAID, SELFPAY ==
[2024-03-02 13:08] VITALS: BP 133/78; PULSE 86; RESP 16; TEMP 36.4; O2SAT 100; BMI 26.5
--- NOTE | 2024-03-02 13:12 | ED_ITS ---
HPI - Nausea/Vomiting/Diarrhea General Chief complaint: Abdominal Pain Stated complaint: Vomiting Related Data Previous Rx's ?Medication ?Instructions ?Recorded omeprazole 20 mg capsule,delayed 20 mg PO DAILY 30 days #30 caps 04/26/21 release ondansetron HCl 4 mg tablet 4 mg PO Q8H PRN nausea and 04/26/21 (Zofran) vomiting #14 tabs ondansetron HCl 4 mg tablet 4 mg PO Q6H PRN nausea and 11/01/21 vomiting #7 tabs aluminum-mag hydroxide-simethicone 5 ml PO 5XD PRN dyspepsia #30 mL 10/25/22 200 mg-200 mg-20 mg/5 mL oral susp (Maalox Advanced) famotidine 20 mg tablet (Pepcid) 20 mg PO DAILY #14 tabs 10/25/22 ondansetron 4 mg disintegrating 4 mg PO Q8H PRN nausea and 10/25/22 tablet vomiting #10 tabs cephalexin 500 mg capsule 500 mg PO QID 10 days #40 caps 06/02/23 ciprofloxacin HCl 500 mg tablet 500 mg PO BID #20 tabs 06/02/23 (Cipro) metoclopramide HCl 10 mg tablet 10 mg PO Q6H PRN nausea and 10/03/23 (Reglan) vomiting #20 tabs ondansetron 4 mg disintegrating 4 mg PO Q8H PRN nausea and 10/03/23 tablet vomiting #20 tabs Allergies Allergy/AdvReac Type Severity Reaction Status Date / Time No Known Allergies Allergy Verified 03/02/24 13:13 [facility] Past Medical History Medical History Cyclic vomiting syndrome Social History Social History Unable to assess alcohol history related to: Unknown Substance Use Type: Marijuana Advance Directives: No Advance Directives Information Provided: Yes Do you have a plan to hurt others: No Plan Physical Exam 2 Vital Signs: Vital Signs: Last Vital Signs Temp 97.6 F 03/02/24 13:08 Pulse 86 03/02/24 13:08 Resp 16 03/02/24 13:08 BP 133/78 03/02/24 13:08 Pulse Ox 100 03/02/24 13:08 O2 Del Method Room Air 03/02/24 13:08 BMI result Body Mass Index 26.5 Course Course Course Narrative: This is an RME: Additional HPI, ROS, PE not included below will be deferred to primary provider. RME assessment and note performed by: Jasmin Clarke PA-C This is a [id number]-male, with a hx of cyclical vomiting, who presents to the ER with complaints of nausea, vomiting and diarrhea since 3 am this morning. Endorsing some LLQ pain. Pt actively vomiting in triage. Plan: Zofran ODT, labs, UA, further ER evaluation needed. Reevaluation(s) Reevaluation #1: Patient left without completing treatment. Medications Administered Discontinued Medications Generic Name Dose Route Start Last Admin Trade Name Freq PRN Reason Stop Dose Admin Ondansetron HCl 4 mg 03/02/24 13:11 03/02/24 13:17 Ondansetron Odt 4 Mg Tab.Rapdis TRANSLINGU 03/02/24 13:12 4 mg ONCE ONE Administration Medical Decision Making Lab Data 03/02/24 14:44 03/02/24 14:44 Labs: Lab Results 03/02/24 Range/Units 14:44 WBC 25.4 H (4.8-10.8) X10*3/uL RBC 5.20 (4.60-5.80) X10*6/uL Hgb 15.6 (14.0-18.0) g/dl Hct 45.5 (42.0-52.0) % MCV 87.5 (80.0-98.0) fL MCH 30.0 (27.0-33.0) pg MCHC 34.3 (31.0-36.0) g/dl RDW 12.7 (11.0-16.0) % Plt Count 347 (160-400) X10*3/uL MPV 11.3 (9.4-12.4) fL Immature Gran % (Auto) 0.7 H (0.0-0.4) % Neut % (Auto) 90.5 H (45-73) % Lymph % (Auto) 5.1 L (20-40) % Elbert % (Auto) 3.4 (2-11) % Eos % (Auto) 0.0 (0-4) % Baso % (Auto) 0.3 (0-2) % Lymph # (Auto) 1.3 (1.2-4.9) X10*3/uL Elbert # (Auto) 0.9 (0.1-1.2) X10*3/uL Eos # (Auto) 0.0 (0.0-0.4) X10*3/uL Baso # (Auto) 0.1 (0.0-0.2) X10*3/uL Abs Immat Gran (auto) 0.19 H (0.00-0.03) X10*3/uL Absolute Neuts (auto) 23.0 H (2.0-8.3) x10*3/uL Absolute Nucleated RBC 0.000 (0.0-0.012) X10*3/uL Nucleated RBC % (auto) 0.0 (0.0-0.2) /100WBC Smear Tech's Comments VERIFIED Sodium 146 H (135-145) mmol/L Potassium 4.3 D (3.3-5.1) mmol/L Chloride 109 H (96-108) mmol/L Carbon Dioxide 23 (22-29) mmol/L Anion Gap 18 (12-20) BUN 14 (9-16) mg/dL Creatinine 0.92 (0.5-1.4) mg/dL Estim Creat Clear Calc 120.1 Estimated GFR > 60 Random Glucose 152 H (60-115) mg/dL Calcium 11.0 H (8.4-10.2) mg/dL Magnesium 2.0 (1.6-2.6) mg/dL Total Bilirubin 1.3 H (0.0-1.0) mg/dL Direct Bilirubin 0.3 (0.0-0.5) mg/dL AST 22 (5-37) U/L ALT 19 (0-40) U/L Alkaline Phosphatase 102 (39-117) U/L Total Protein 8.1 H (6.5-8.0) g/dL Albumin 5.3 H (3.5-5.0) g/dL Lipase 11 (8-78) U/L Influenza Type A (PCR) NEGATIVE (Negative) Influenza Type B (PCR) NEGATIVE (Negative) RSV RNA Qual (PCR) NEGATIVE (Negative) SARS-CoV-2 RNA (RT-PCR) NEGATIVE (Negative) Discharge Plan Discharge Clinical Impression: Nausea & vomiting Patient Disposition: Left W/O Completing Treatment Prescriptions: No Action omeprazole 20 mg capsule,delayed release(DR/EC) 20 mg PO DAILY 30 Days Qty: 30 0RF ondansetron HCl [Zofran] 4 mg tablet 4 mg PO Q8H PRN (Reason: nausea and vomiting) Qty: 14 0RF ondansetron HCl 4 mg tablet 4 mg PO Q6H PRN (Reason: nausea and vomiting) Qty: 7 0RF famotidine [Pepcid] 20 mg tablet 20 mg PO DAILY Qty: 14 0RF ondansetron 4 mg tablet,disintegrating 4 mg PO Q8H PRN (Reason: nausea and vomiting) Qty: 10 0RF alum-mag hydroxide-simeth [Maalox Advanced] 200-200-20 mg/5 mL suspension 5 ml PO 5XD PRN (Reason: dyspepsia) Qty: 30 0RF Rx Instructions: administer between meals and at bedtime cephalexin 500 mg capsule 500 mg PO QID 10 Days Qty: 40 0RF ciprofloxacin HCl [Cipro] 500 mg tablet 500 mg PO BID Qty: 20 0RF ondansetron 4 mg tablet,disintegrating 4 mg PO Q8H PRN (Reason: nausea and vomiting) Qty: 20 0RF metoclopramide HCl [Reglan] 10 mg tablet 10 mg PO Q6H PRN (Reason: nausea and vomiting) Qty: 20 0RF Discharge Date/Time: 03/02/24 18:29
[2024-03-02] MEDS: Ondansetron ODT 4 MG TAB.RAPDIS TRANSLINGU (13:17)
[2024-03-02 14:51] LABS: Basophils Absolute Auto 0.1 X10*3/uL (0.0-0.2); Basophils Percent Auto 0.3 % (0-2); Hematocrit 45.5 % (42.0-52.0); Hemoglobin 15.6 g/dl (14.0-18.0); Imm Gran Abs Auto 0.19 X10*3/uL (0.00-0.03); Imm Gran Pct Auto 0.7 % (0.0-0.4); Lymphocytes Absolute Auto 1.3 X10*3/uL (1.2-4.9); Lymphocytes Percent Auto 5.1 % (20-40); MANUAL DIFF FLAG SCAN; Mean Corpuscular HGB Conc 34.3 g/dl (31.0-36.0); Mean Corpuscular Volume 87.5 fL (80.0-98.0); Mean Platelet Volume 11.3 fL (9.4-12.4); Monocytes Absolute Auto 0.9 X10*3/uL (0.1-1.2); Monocytes Percent Auto 3.4 % (2-11); Neutrophils Percent Auto 90.5 % (45-73); Platelet Count 347 X10*3/uL (160-400); Red Cell Distribution Width 12.7 % (11.0-16.0); SCAN SMEAR FLAG 1; White Blood Count 25.4 X10*3/uL (4.8-10.8)
[2024-03-02 15:05] LABS: Alanine Aminotransferase 19 U/L (0-40); Albumin Level 5.3 g/dL (3.5-5.0); Alkaline Phosphatase 102 U/L (39-117); Anion Gap 18 (12-20); Aspartate Amino Transferase 22 U/L (5-37); Bilirubin Direct 0.3 mg/dL (0.0-0.5); Bilirubin Total 1.3 mg/dL (0.0-1.0); Blood Urea Nitrogen 14 mg/dL (9-16); Carbon Dioxide 23 mmol/L (22-29); Chloride 109 mmol/L (96-108); Creatinine Clr Calc Pharmacy 120.1; Estimated Glomerular Filt Rate > 60; Glucose Random 152 mg/dL (60-115); Lipase 11 U/L (8-78); Potassium 4.3 mmol/L (3.3-5.1); Sodium 146 mmol/L (135-145); Total Protein 8.1 g/dL (6.5-8.0)
[2024-03-02 15:17] LABS: SLIDE REVIEW VERIFIED
[2024-03-02 15:28] LABS: Influenza A PCR NEGATIVE (Negative); Influenza B PCR NEGATIVE (Negative); Resp Syncy Virus RNA Qual PCR NEGATIVE (Negative); SARS COV2 PCR INHOUSE NEGATIVE (Negative)
== END 2024-03-02 18:29 | disposition left against medical advice (07) ==
PROVIDERS: Physician Assistant Medical; Emergency Provider Emergency Medicine
DX: R11.2 Nausea with vomiting, unspecified (principal); R10.32 Left lower quadrant pain; Z03.818 Encounter for observation for suspected exposure to other biological agents ruled out
CPT/HCPCS: 0241U; 36415; 80048; 80076; 83690; 83735; 85025; 99281; 99283

== ENCOUNTER 2024-04-07 11:17 | Emergency (ER) | payer MEDICAID, SELFPAY ==
[2024-04-07 11:29] VITALS: BP 114/73; PULSE 80; RESP 18; TEMP 36.5; O2SAT 100; BMI 28.0
--- NOTE | 2024-04-07 11:32 | ED_ITS ---
HPI - Nausea/Vomiting/Diarrhea General Chief complaint: Nausea/Vomiting/Diarrhea Stated complaint: vomiting Time Seen by Provider: 04/07/24 12:22 Source: patient, family, RN notes reviewed and old records reviewed Mode of arrival: ambulatory Limitations: no limitations History of Present Illness ED Provider: Shant Sabillon PA-C HPI Narrative: 33-year-old female with history of cannabinoid induced cyclical vomiting syndrome who presents to the ER for evaluation of acute onset of vomiting that started at 06:00 along with left lower quadrant pain. He states his last time smoking marijuana was 3 days ago and he is not going to smoke anymore. He has had several presentations exactly similar to this that has required IV medications in the emergency department. Patient denies any fevers or chills but he arrives to the ER sweating. He has vomited countless times since 06:00 today. MD elicited complaint: nausea, vomiting, diarrhea and abdominal pain Pertinent past history: cyclical vomiting Onset (ago): hour(s) Description of vomiting: watery and bilious Associated nausea: Yes Associated abdominal pain: Yes Location of pain: LLQ Radiation: diffuse Pain consistency: constant Severity: severe Pain scale (0-10): 10 Quality: cramping Exacerbating factors: eating Relieving factors: none Context: marijuana use Associated symptoms: diaphoresis, headaches, loss of appetite, malaise, nausea/vomiting, weakness and anxiety Related Data Previous Rx's ?Medication ?Instructions ?Recorded omeprazole 20 mg capsule,delayed 20 mg PO DAILY 30 days #30 caps 04/26/21 release ondansetron HCl 4 mg tablet 4 mg PO Q8H PRN nausea and 04/26/21 (Zofran) vomiting #14 tabs ondansetron HCl 4 mg tablet 4 mg PO Q6H PRN nausea and 11/01/21 vomiting #7 tabs aluminum-mag hydroxide-simethicone 5 ml PO 5XD PRN dyspepsia #30 mL 10/25/22 200 mg-200 mg-20 mg/5 mL oral susp (Maalox Advanced) famotidine 20 mg tablet (Pepcid) 20 mg PO DAILY #14 tabs 10/25/22 ondansetron 4 mg disintegrating 4 mg PO Q8H PRN nausea and 10/25/22 tablet vomiting #10 tabs cephalexin 500 mg capsule 500 mg PO QID 10 days #40 caps 06/02/23 ciprofloxacin HCl 500 mg tablet 500 mg PO BID #20 tabs 06/02/23 (Cipro) metoclopramide HCl 10 mg tablet 10 mg PO Q6H PRN nausea and 10/03/23 (Reglan) vomiting #20 tabs ondansetron 4 mg disintegrating 4 mg PO Q8H PRN nausea and 10/03/23 tablet vomiting #20 tabs ondansetron 4 mg disintegrating 4 mg PO Q8H PRN nausea and 04/07/24 tablet vomiting #7 tabs Allergies Allergy/AdvReac Type Severity Reaction Status Date / Time No Known Allergies Allergy Verified 04/07/24 11:31 Review of Systems 2 Review of Systems: Yes all other systems are reviewed and are negative Gastrointestinal: Gastrointestinal: Reports nausea PMFSH Past Medical History Medical History Cyclic vomiting syndrome Social History Social History Unable to assess alcohol history related to: Unknown Substance Use Type: Marijuana Advance Directives: No Advance Directives Information Provided: Yes Physical Exam 2 Vital Signs: Vital Signs: Last Vital Signs Temp 97.9 F 04/07/24 16:14 Pulse 68 04/07/24 16:14 Resp 17 04/07/24 16:14 BP 140/77 H 04/07/24 16:14 Pulse Ox 98 04/07/24 16:14 O2 Del Method Room Air 04/07/24 16:14 BMI result Body Mass Index 28.0 Appearance: Alert. Oriented X3. Diaphoretic, appears ill Head: normocephalic, atraumatic. Eyes: Pupils equal, round and reactive to light. ENT: Pharynx normal. No tonsillar swelling or exudate. Neck: Normal inspection. Neck supple. CVS: Normal heart rate and rhythm. Pulses normal. Respiratory: No respiratory distress. Breath sounds normal. Abdomen: Soft with tenderness to the lower abdomen, L>R without associated rebound or guarding, hyperactive +BS x4 Skin: Skin warm and dry. Normal skin color. Normal skin turgor. No rashes. Extremities: No lower extremity edema. No joint swelling. Neuro/psych: Oriented X 3. No motor deficit. No sensory deficit. CN II-XII intact. Normal speech and cognition. Course Course Course Narrative: This is a Rapid Medical Examination (RME) performed by Mena Brooks PA-C in triage. Full HPI, ROS, assessment and treatment plan per primary provider in the Main ED. 33 yo male hx of cyclical vomiting syndrome here w/ acute on chronic nausea, vomiting, and 10/10 LLQ pain x today. reports this has been intermittent for years and was told the symptoms may be d/t gastritis vs PUD. well known to ED for similar presentation. has not been unable to establish care w/ PCP or GI. reports smoking marijuana daily however quit 3 days ago. PE: patient ill appearing, diaphoretic, pale. abd soft but ttp of LLQ without rebound/ guarding. Plan: labs, viral serology, UA/ utox Reevaluation(s) Reevaluation #1: sleeping after droperidol, no further vomiting. Time: 14:01 Reevaluation #2: Patient feeling much better, tolerating p.o.. Stable for discharge. Emphasized the importance of cessation of marijuana use. Time: 16:09 Medications Administered Discontinued Medications Generic Name Dose Route Start Last Admin Trade Name Freq PRN Reason Stop Dose Admin Droperidol 1.25 mg 04/07/24 12:29 04/07/24 12:54 Droperidol 5 Mg/2 Ml Vial IVPUSH 04/07/24 12:30 1.25 mg ONCE ONE Administration Sodium Chloride 1,000 mls @ 999 mls/hr 04/07/24 12:30 04/07/24 14:17 Ns IV 04/07/24 13:30 Infused .Q1H1M MICHEAL Infusion Sodium Chloride 1,000 mls @ 999 mls/hr 04/07/24 14:00 04/07/24 15:52 Ns IVCONT 04/07/24 15:00 Infused .Q1H1M MICHEAL Infusion Medical Decision Making Medical Decision Making [facility] Narrative: 33-year-old male with a 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 Upon review he has had 2 CT scans for similar complaints including left lower quadrant pain. He has been to the ER 11 times for this in the last couple of years. He continues to smoke marijuana. Arrival to the ER he is diaphoretic, appears unwell, actively vomiting. He has tenderness along his entire lower abdomen. Labs show significant leukocytosis although this is stable from prior. This is likely reactive due to his recurrent vomiting. Doubt any acute abdominal process. Imaging deferred. He was treated with IV fluids and droperidol with significant improvement in his symptoms. Differential Diagnosis Differential Diagnoses: The differential diagnosis associated with the presentation includes Cyclical vomiting due to cannabinoid use, colitis, bowel obstruction, diverticulitis, appendicitis, dehydration, electrolyte abnormality Admission/Observation Consideration of admission/observation: Escalation of care including admission/observation considered Lab Data MDM Lab Attestation statement: I reviewed the patient's lab results. Significant leukocytosis without any other metabolic derangement, compared to prior his white count is the exact same. 04/07/24 12:07 04/07/24 12:07 Labs: Lab Results 04/07/24 Range/Units 12:07 WBC 24.5 H (4.8-10.8) X10*3/uL RBC 5.84 H (4.60-5.80) X10*6/uL Hgb 17.4 (14.0-18.0) g/dl Hct 50.3 (42.0-52.0) % MCV 86.1 (80.0-98.0) fL MCH 29.8 (27.0-33.0) pg MCHC 34.6 (31.0-36.0) g/dl RDW 12.4 (11.0-16.0) % Plt Count 336 (160-400) X10*3/uL MPV 11.7 (9.4-12.4) fL Immature Gran % (Auto) 0.8 H (0.0-0.4) % Neut % (Auto) 87.1 H (45-73) % Lymph % (Auto) 7.1 L (20-40) % [place] % (Auto) 4.7 (2-11) % Eos % (Auto) 0.0 (0-4) % Baso % (Auto) 0.3 (0-2) % Lymph # (Auto) 1.7 (1.2-4.9) X10*3/uL [place] # (Auto) 1.2 (0.1-1.2) X10*3/uL Eos # (Auto) 0.0 (0.0-0.4) X10*3/uL Baso # (Auto) 0.1 (0.0-0.2) X10*3/uL Abs Immat Gran (auto) 0.20 H (0.00-0.03) X10*3/uL Absolute Neuts (auto) 21.3 H (2.0-8.3) x10*3/uL Absolute Nucleated RBC 0.000 (0.0-0.012) X10*3/uL Nucleated RBC % (auto) 0.0 (0.0-0.2) /100WBC Smear Tech's Comments VERIFIED Sodium 142 (135-145) mmol/L Potassium 4.0 (3.3-5.1) mmol/L Chloride 103 (96-108) mmol/L Carbon Dioxide 25 (22-29) mmol/L Anion Gap 18 (12-20) BUN 19 H (9-16) mg/dL Creatinine 1.14 (0.5-1.4) mg/dL Estim Creat Clear Calc 105.1 Estimated GFR > 60 Random Glucose 159 H (60-115) mg/dL Calcium 11.1 H (8.4-10.2) mg/dL Magnesium 2.3 (1.6-2.6) mg/dL Total Bilirubin 2.2 H (0.0-1.0) mg/dL AST 20 (5-37) U/L ALT 20 (0-40) U/L Alkaline Phosphatase 115 (39-117) U/L Total Protein 8.8 H (6.5-8.0) g/dL Albumin 5.6 H (3.5-5.0) g/dL Lipase 12 (8-78) U/L Ethyl Alcohol < 10 mg/dL Influenza Type A (PCR) NEGATIVE (Negative) Influenza Type B (PCR) NEGATIVE (Negative) RSV RNA Qual (PCR) NEGATIVE (Negative) SARS-CoV-2 RNA (RT-PCR) NEGATIVE (Negative) Independent Historian Clinical information obtained from an independent historian. History obtained from or confirmed by: Spouse External Record Review External record reviewed: Outpatient record, Prior outpatient labs and Prior outpatient radiology Tests considered The following testing was considered but not selected: CT scan of the abdomen was considered given his leukocytosis however given his recurrent and similar presentations this was deferred for now Prescription Management I considered prescription management with: Pain Medication and Antibiotic Chronic Conditions Patient?s care impacted by: Other (Cyclical vomiting) Social Determinants Patient?s care significantly limited by Social Determinants of Health including: Other Social Determinant of Health Critical Care Time Critical Care Time Critical Care Time: No Discharge Plan Discharge Clinical Impression: Cyclical vomiting Patient Disposition: Home, Self-Care Instructions: Cyclic Vomiting Syndrome (ED) Additional Instructions: STOP SMOKING POT If you develop new or worsening symptoms call 911 or come back to the ER for further evaluation. Prescriptions: New ondansetron 4 mg tablet,disintegrating 4 mg PO Q8H PRN (Reason: nausea and vomiting) Qty: 7 0RF No Action omeprazole 20 mg capsule,delayed release(DR/EC) 20 mg PO DAILY 30 Days Qty: 30 0RF ondansetron HCl [Zofran] 4 mg tablet 4 mg PO Q8H PRN (Reason: nausea and vomiting) Qty: 14 0RF ondansetron HCl 4 mg tablet 4 mg PO Q6H PRN (Reason: nausea and vomiting) Qty: 7 0RF famotidine [Pepcid] 20 mg tablet 20 mg PO DAILY Qty: 14 0RF ondansetron 4 mg tablet,disintegrating 4 mg PO Q8H PRN (Reason: nausea and vomiting) Qty: 10 0RF alum-mag hydroxide-simeth [Maalox Advanced] 200-200-20 mg/5 mL suspension 5 ml PO 5XD PRN (Reason: dyspepsia) Qty: 30 0RF Rx Instructions: administer between meals and at bedtime cephalexin 500 mg capsule 500 mg PO QID 10 Days Qty: 40 0RF ciprofloxacin HCl [Cipro] 500 mg tablet 500 mg PO BID Qty: 20 0RF ondansetron 4 mg tablet,disintegrating 4 mg PO Q8H PRN (Reason: nausea and vomiting) Qty: 20 0RF metoclopramide HCl [Reglan] 10 mg tablet 10 mg PO Q6H PRN (Reason: nausea and vomiting) Qty: 20 0RF Print Language: Swedish
[2024-04-07 12:17] LABS: Basophils Absolute Auto 0.1 X10*3/uL (0.0-0.2); Basophils Percent Auto 0.3 % (0-2); Hematocrit 50.3 % (42.0-52.0); Hemoglobin 17.4 g/dl (14.0-18.0); Imm Gran Pct Auto 0.8 % (0.0-0.4); Lymphocytes Absolute Auto 1.7 X10*3/uL (1.2-4.9); Lymphocytes Percent Auto 7.1 % (20-40); MANUAL DIFF FLAG SCAN; Mean Corpuscular HGB Conc 34.6 g/dl (31.0-36.0); Mean Corpuscular Hemoglobin 29.8 pg (27.0-33.0); Mean Corpuscular Volume 86.1 fL (80.0-98.0); Mean Platelet Volume 11.7 fL (9.4-12.4); Monocytes Absolute Auto 1.2 X10*3/uL (0.1-1.2); Monocytes Percent Auto 4.7 % (2-11); Neutrophils Absolute Auto 21.3 x10*3/uL (2.0-8.3); Neutrophils Percent Auto 87.1 % (45-73); Platelet Count 336 X10*3/uL (160-400); Red Blood Count 5.84 X10*6/uL (4.60-5.80); Red Cell Distribution Width 12.4 % (11.0-16.0); SCAN SMEAR FLAG 1; White Blood Count 24.5 X10*3/uL (4.8-10.8)
[2024-04-07 12:28] LABS: Alanine Aminotransferase 20 U/L (0-40); Albumin Level 5.6 g/dL (3.5-5.0); Alkaline Phosphatase 115 U/L (39-117); Anion Gap 18 (12-20); Aspartate Amino Transferase 20 U/L (5-37); Bilirubin Total 2.2 mg/dL (0.0-1.0); Blood Urea Nitrogen 19 mg/dL (9-16); Calcium 11.1 mg/dL (8.4-10.2); Carbon Dioxide 25 mmol/L (22-29); Chloride 103 mmol/L (96-108); Creatinine Clr Calc Pharmacy 105.1; Estimated Glomerular Filt Rate > 60; Ethanol < 10 mg/dL; Glucose Random 159 mg/dL (60-115); Lipase 12 U/L (8-78); Magnesium 2.3 mg/dL (1.6-2.6); Sodium 142 mmol/L (135-145); Total Protein 8.8 g/dL (6.5-8.0)
[2024-04-07 12:45] LABS: SLIDE REVIEW VERIFIED
[2024-04-07] MEDS: 0.9 % Sodium Chloride 1,000 ML 999 ML IV (12:54)
[2024-04-07] MEDS: droPERidol 5 MG/2 ML VIAL 1.25 MG IVPUSH (12:54)
[2024-04-07 12:59] LABS: Influenza A PCR NEGATIVE (Negative); Influenza B PCR NEGATIVE (Negative); Resp Syncy Virus RNA Qual PCR NEGATIVE (Negative); SARS COV2 PCR INHOUSE NEGATIVE (Negative)
[2024-04-07] MEDS: 0.9 % Sodium Chloride 1,000 ML 999 ML IVCONT (14:13)
[2024-04-07 14:20] VITALS: BP 130/79; PULSE 68; RESP 16; TEMP 36.5; O2SAT 98
[2024-04-07 16:14] VITALS: BP 140/77; PULSE 68; RESP 17; TEMP 36.6; O2SAT 98
[2024-04-07 16:22] VITALS: BP 140/77; PULSE 68; RESP 17; TEMP 36.6; O2SAT 98
== END 2024-04-07 16:23 | disposition home or self-care (01) ==
PROVIDERS: Physician Assistant Medical; Emergency Provider Emergency Medicine
DX: R11.15 Cyclical vomiting syndrome unrelated to migraine (principal); F12.90 Cannabis use, unspecified, uncomplicated; Z03.818 Encounter for observation for suspected exposure to other biological agents ruled out
CPT/HCPCS: 0241U; 36415; 80053; 80307; 83690; 83735; 85025; 96361; 96374; 99283; 99284; J1790